=== PATIENT | male | born 1955 | race Two or more races ===

== ENCOUNTER 2021-06-14 11:39 | Emergency (ER) | payer MEDICAID, OTHER ==
[~2021-06-14] VITALS: Ht 167.6 cm; Wt 104.3 kg
[2021-06-14] MEDS ORDERED: cloNIDine HCL 0.1 MG TAB PO ONE (12:00)
[2021-06-14] MEDS ORDERED: SODIUM CHLORIDE 0.9% 1,000 ML IV ONE (12:15)
[2021-06-14 12:24] LABS: Urine Bacteria NONE SEEN /hpf (None Seen); Urine Blood 2+ /uL (Negative); Urine Hyaline Cast MANY /lpf (0 - 2); Urine Mucus FEW (None Seen); Urine Specific Gravity 1.025 (1.001-1.035); Urine WBC 2 /hpf (0 - 3)
[2021-06-14 13:19] LABS: Basophils # (auto) 0 10 ^3/uL (0-0.2); Basophils % (auto) 0.3 % (0.0-2.0); Eosinophils # (auto) 0 10 ^3/uL (0-0.8); Eosinophils % (auto) 0.1 % (0.0-7.0); Hematocrit 52.2 % (41.0-53.0); Hemoglobin 17.4 g/dL (13.5-17.5); Lymphocytes # (auto) 1.4 10 ^3/uL (0.4-5.4); Lymphocytes % (auto) 9.6 % (10.0-50.0); Mean Corpuscular Hemoglobin 30.1 pg (28.0-32.0); Mean Corpuscular Hgb Conc. 33.3 g/dL (32.0-36.0); Mean Corpuscular Volume 90.2 fL (80.0-100.0); Monocytes # (auto) 1.3 10 ^3/uL (0-1.3); Monocytes % (auto) 8.7 % (0.0-12.0); Neutrophils # (auto) 12.3 10 ^3/uL (1.6-8.6); Neutrophils % (auto) 81.3 % (37.0-80.0); Red Blood Cells 5.78 10^6/uL (4.5-5.90); Red Cell Distribution Width 15.1 % (11.8-14.3); White Blood Cell 15.1 10^3/uL (4.4-10.8)
[2021-06-14 13:41] LABS: Albumin 3.2 g/dL (3.4-5.0); BUN/Creatinine Ratio 13.2; Calcium 9.4 mg/dL (8.5-10.1); Potassium 4.5 mmol/L (3.5-5.1)
[2021-06-14 13:44] LABS: Bilirubin, Total 0.9 mg/dL (0.2-1.0); Total Protein 7.6 g/dL (6.4-8.2)
[2021-06-14] MEDS ORDERED: LABETALOL HCL 5 MG/ML ML 20ML VIAL IV ONE (14:49)
[2021-06-14] MEDS ORDERED: LABETALOL INJECTION 250 MG in SODIUM CHL 0.9% 200 ML IV ONE (16:00)
[2021-06-14] MEDS ORDERED: LABETALOL INJECTION 250 MG in SODIUM CHL 0.9% 200 ML IV PRN (21:15)
[2021-06-14 23:35] VITALS: BP 104/56
== END 2021-06-15 01:18 | disposition short-term general hospital (02) ==
LOC: ER 11:39
DX: I71.4 Abdominal aortic aneurysm, without rupture (principal); I16.0 Hypertensive urgency; Z20.822 Contact with and (suspected) exposure to COVID-19
CPT/HCPCS: 36415; 74176; 80053; 81001; 83605; 85025; 86850; 86900; 86901; 87426; 96361; 96365; 99285; J7030; J7050

== ENCOUNTER 2023-10-04 20:04 | Inpatient (IN) | payer OTHER, MEDICAID ==
[~2023-10-04] VITALS: Ht 167.6 cm; Wt 109.1 kg
[2023-10-04] MEDS: DexAMETHasone SOD PHOS 10MG/1ML VIAL INJ IM ONE (20:56)
[2023-10-04 21:15] LABS: Basophils # (auto) 0.1 10 ^3/uL (0-0.2); Basophils % (auto) 0.5 % (0.0-2.0); Eosinophils # (auto) 0.1 10 ^3/uL (0-0.8); Eosinophils % (auto) 0.5 % (0.0-7.0); Hematocrit 51.5 % (41.0-53.0); Hemoglobin 16.5 g/dL (13.5-17.5); Lymphocytes # (auto) 1.4 10 ^3/uL (0.4-5.4); Mean Corpuscular Hemoglobin 28.7 pg (28.0-32.0); Mean Corpuscular Volume 89.8 fL (80.0-100.0); Monocytes # (auto) 1.7 10 ^3/uL (0-1.3); Monocytes % (auto) 7.2 % (0.0-12.0); Neutrophils # (auto) 20.5 10 ^3/uL (1.6-8.6); Neutrophils % (auto) 85.8 % (37.0-80.0); Nucleated Red Blood Cells % 0.1 %; Red Blood Cells 5.74 10^6/uL (4.5-5.90); Red Cell Distribution Width 15.7 % (11.8-14.3); White Blood Cell 23.9 10^3/uL (4.4-10.8)
[2023-10-04] MEDS: ALBUTEROL SULF 2.5 MG/0.5ML(0.5%) NEB SOLN NEB ONE (21:24)
[2023-10-04] MEDS: IPRATROPIUM BROM 0.5 MG/2.5ML INH SOL NEB ONE (21:24)
[2023-10-04 21:30] LABS: Alanine Aminotransferase 19 U/L (7-40); Albumin 4.2 g/dL (3.2-4.8); Alkaline Phosphatase 111 U/L (46-116); Anion Gap 5 (5-15); Aspartate Aminotransferase 19 U/L (13-40); BUN/Creatinine Ratio 6.1 (10.0-20.0); Bilirubin, Total 1.2 mg/dL (0.2-1.0); Blood Urea Nitrogen 11 mg/dL (9-23); Calcium 9.4 mg/dL (8.5-10.1); Carbon Dioxide 26 mmol/L (20-30); Chloride 105 mmol/L (98-107); Glucose 106 mg/dL (74-106); Potassium 4.7 mmol/L (3.5-5.1); Sodium 136 mmol/L (136-145); Total Protein 6.9 g/dL (5.7-8.2)
[2023-10-04 22:24] LABS: Urine Bacteria FEW /hpf (None Seen); Urine Blood 3+ /uL (Negative); Urine Clarity Clear (Clear); Urine Color Yellow (Yellow); Urine Mucus FEW (None Seen); Urine Protein, UAD 3+ (Negative); Urine Specific Gravity 1.023 (1.001-1.035); Urine Urobilinogen Normal (Negative); Urine WBC 2 /hpf (0 - 3)
[2023-10-04] MEDS: AZITHROMYCIN 250 MG TAB PO ONE (23:08)
[2023-10-05] VITALS (12 sets, daily range): BP systolic 117–150; BP diastolic 64–87; PULSE 86–111; RESP 14–22; TEMP 97.2–98.3; O2SAT 91–99
[2023-10-05] MEDS ORDERED: DOCUSATE SOD 100 MG CAP PO PRN (00:30)
[2023-10-05] MEDS ORDERED: ACETAMINOPHEN 325 MG TAB PO PRN ×2 (00:30)
[2023-10-05] MEDS ORDERED: ONDANSETRON HCL 4 MG/2 ML VIAL IV PRN (00:30)
[2023-10-05] MEDS ORDERED: NITROGLYCERIN 0.4 MG SL TAB SL PRN (01:30)
[2023-10-05] MEDS ORDERED: MORPHINE SULFATE INJ 2 MG/ml SYRG IV PRN (01:30)
[2023-10-05] MEDS: SODIUM CHLORIDE 0.9% 1,000 ML IV SCH (01:31)
[2023-10-05] MEDS: methylPREDNISolone SOD SUCC 40 MG/ML VL IV SCH (06:02)
[2023-10-05 06:44] LABS: Alanine Aminotransferase 20 U/L (7-40); Albumin 4.2 g/dL (3.2-4.8); Alkaline Phosphatase 104 U/L (46-116); Anion Gap 8 (5-15); Aspartate Aminotransferase 15 U/L (13-40); BUN/Creatinine Ratio 9.8 (10.0-20.0); Blood Urea Nitrogen 19 mg/dL (9-23); Carbon Dioxide 25 mmol/L (20-30); Chloride 103 mmol/L (98-107); Potassium 4.8 mmol/L (3.5-5.1); Sodium 136 mmol/L (136-145); Total Protein 6.8 g/dL (5.7-8.2)
[2023-10-05 06:45] LABS: Calcium 9.1 mg/dL (8.7-10.4)
[2023-10-05 06:50] LABS: Basophils # (auto) 0 10 ^3/uL (0-0.2); Basophils % (auto) 0.1 % (0.0-2.0); Eosinophils # (auto) 0 10 ^3/uL (0-0.8); Hematocrit 51.4 % (41.0-53.0); Hemoglobin 16.7 g/dL (13.5-17.5); Lymphocytes # (auto) 0.7 10 ^3/uL (0.4-5.4); Lymphocytes % (auto) 3.5 % (10.0-50.0); Mean Corpuscular Hemoglobin 29.1 pg (28.0-32.0); Mean Corpuscular Hgb Conc. 32.4 g/dL (32.0-36.0); Mean Corpuscular Volume 89.8 fL (80.0-100.0); Monocytes # (auto) 0.2 10 ^3/uL (0-1.3); Monocytes % (auto) 0.9 % (0.0-12.0); Neutrophils # (auto) 18.5 10 ^3/uL (1.6-8.6); Neutrophils % (auto) 95.5 % (37.0-80.0); Red Blood Cells 5.73 10^6/uL (4.5-5.90); Red Cell Distribution Width 15.4 % (11.8-14.3); White Blood Cell 19.4 10^3/uL (4.4-10.8)
[2023-10-05 06:57] LABS: Glucose 297 mg/dL (74-106)
[2023-10-05] MEDS: ASPirin 81 mg TAB PO SCH (09:39)
[2023-10-05] MEDS ORDERED: LISI40TA16 PO (09:43)
[2023-10-05 13:52] LABS: Triglycerides 117 mg/dL (< 150)
[2023-10-05 13:53] LABS: LDL Cholesterol 101 mg/dL (< 100)
[2023-10-05 13:54] LABS: HDL Cholesterol 38 mg/dL (40-59)
[2023-10-05 13:55] LABS: Cholesterol 156 mg/dL (< 200)
[2023-10-05] MEDS: cefTRIAXone 1GM/50ML D5W 50 ML IV ONE (14:15)
[2023-10-05] MEDS ORDERED: SIMV40TA18 PO ×2 (16:00)
[2023-10-05] MEDS ORDERED: PROP80CA40 PO (16:00)
[2023-10-05] MEDS: ATORVASTATIN 20 MG TAB PO SCH (22:28)
[2023-10-05] MEDS: AZITHROMYCIN 500MG/ 250ML 250 ML IV SCH (22:29)
[2023-10-06] VITALS (10 sets, daily range): BP systolic 107–148; BP diastolic 48–84; PULSE 55–139; RESP 14–23; TEMP 97.3–98.3; O2SAT 94–98
[2023-10-06 04:17] LABS: Rapid Influenza A Negative (Negative)
[2023-10-06 04:18] LABS: COVID19 ANTIGEN SOFIA FIA NEGATIVE (NEGATIVE); Rapid Influenza B Negative (Negative)
[2023-10-06 06:28] LABS: Alanine Aminotransferase 17 U/L (7-40); Alkaline Phosphatase 89 U/L (46-116); Anion Gap 4 (5-15); Aspartate Aminotransferase 12 U/L (13-40); BUN/Creatinine Ratio 16.6 (10.0-20.0); Bilirubin, Total 0.3 mg/dL (0.2-1.0); Calcium 9.7 mg/dL (8.7-10.4); Carbon Dioxide 27 mmol/L (20-30); Chloride 107 mmol/L (98-107); Potassium 4.9 mmol/L (3.5-5.1); Sodium 138 mmol/L (136-145); Total Protein 6.6 g/dL (5.7-8.2)
[2023-10-06 06:30] LABS: Basophils # (auto) 0 10 ^3/uL (0-0.2); Basophils % (auto) 0.1 % (0.0-2.0); Eosinophils # (auto) 0 10 ^3/uL (0-0.8); Hematocrit 50.5 % (41.0-53.0); Hemoglobin 16.1 g/dL (13.5-17.5); Lymphocytes # (auto) 0.9 10 ^3/uL (0.4-5.4); Mean Corpuscular Hemoglobin 28.7 pg (28.0-32.0); Mean Corpuscular Hgb Conc. 31.9 g/dL (32.0-36.0); Mean Corpuscular Volume 90.1 fL (80.0-100.0); Monocytes # (auto) 0.7 10 ^3/uL (0-1.3); Monocytes % (auto) 3.2 % (0.0-12.0); Neutrophils # (auto) 20.8 10 ^3/uL (1.6-8.6); Neutrophils % (auto) 92.7 % (37.0-80.0); Red Cell Distribution Width 15.8 % (11.8-14.3); White Blood Cell 22.4 10^3/uL (4.4-10.8)
[2023-10-06 06:38] LABS: Blood Urea Nitrogen 32 mg/dL (9-23); Glucose 194 mg/dL (74-106)
[2023-10-06] MEDS: cefTRIAXone 1GM/50ML D5W 50 ML IV SCH (09:04)
[2023-10-06] MEDS: LISINOPRIL 20 MG TAB PO SCH (09:05)
[2023-10-06] MEDS: IPRATROPIUM BROM 0.5 MG/2.5ML INH SOL NEB PRN (18:42)
[2023-10-06] MEDS: ALBUTEROL SULF 2.5 MG/0.5ML(0.5%) NEB SOLN NEB PRN (18:42)
[2023-10-07] VITALS (10 sets, daily range): BP systolic 103–118; BP diastolic 46–64; PULSE 53–89; RESP 16–20; TEMP 97.8–97.9; O2SAT 93–99
[2023-10-07 05:20] LABS: Basophils # (auto) 0 10 ^3/uL (0-0.2); Basophils % (auto) 0.1 % (0.0-2.0); Eosinophils # (auto) 0 10 ^3/uL (0-0.8); Hematocrit 49.9 % (41.0-53.0); Hemoglobin 15.8 g/dL (13.5-17.5); Lymphocytes # (auto) 0.8 10 ^3/uL (0.4-5.4); Lymphocytes % (auto) 3.5 % (10.0-50.0); Mean Corpuscular Hemoglobin 28.6 pg (28.0-32.0); Mean Corpuscular Hgb Conc. 31.8 g/dL (32.0-36.0); Mean Corpuscular Volume 90.2 fL (80.0-100.0); Monocytes # (auto) 0.5 10 ^3/uL (0-1.3); Monocytes % (auto) 2.2 % (0.0-12.0); Neutrophils # (auto) 20.6 10 ^3/uL (1.6-8.6); Neutrophils % (auto) 94.2 % (37.0-80.0); Nucleated Red Blood Cells % 0.1 %; Red Blood Cells 5.53 10^6/uL (4.5-5.90); Red Cell Distribution Width 16.1 % (11.8-14.3); White Blood Cell 21.9 10^3/uL (4.4-10.8)
[2023-10-08] VITALS (10 sets, daily range): BP systolic 118–160; BP diastolic 64–99; PULSE 55–96; RESP 18–26; TEMP 97.9–98.3; O2SAT 92–98
[2023-10-08 05:57] LABS: Basophils # (auto) 0 10 ^3/uL (0-0.2); Eosinophils # (auto) 0 10 ^3/uL (0-0.8); Hematocrit 49.3 % (41.0-53.0); Hemoglobin 15.7 g/dL (13.5-17.5); Lymphocytes # (auto) 0.8 10 ^3/uL (0.4-5.4); Lymphocytes % (auto) 5.4 % (10.0-50.0); Mean Corpuscular Hemoglobin 28.7 pg (28.0-32.0); Mean Corpuscular Hgb Conc. 31.8 g/dL (32.0-36.0); Mean Corpuscular Volume 90.2 fL (80.0-100.0); Monocytes # (auto) 0.4 10 ^3/uL (0-1.3); Monocytes % (auto) 2.6 % (0.0-12.0); Neutrophils # (auto) 13.5 10 ^3/uL (1.6-8.6); Red Blood Cells 5.47 10^6/uL (4.5-5.90); Red Cell Distribution Width 15.5 % (11.8-14.3); White Blood Cell 14.7 10^3/uL (4.4-10.8)
[2023-10-08] MEDS: hydrALAZINE HCL 20 MG/ML VL IV PRN (10:40)
[2023-10-09] VITALS (8 sets, daily range): BP systolic 148–160; BP diastolic 90–115; PULSE 66–111; RESP 18–20; TEMP 97.5–98.3; O2SAT 91–97
[2023-10-09 14:30] LABS: Base Excess 3.6 mmol/L (-2.0-2.0)
[2023-10-09] MEDS: AZITHROMYCIN 250 MG TAB PO SCH (20:58)
[2023-10-10] VITALS (8 sets, daily range): BP systolic 134–162; BP diastolic 88–93; PULSE 71–117; RESP 16–19; TEMP 97.3–98; O2SAT 93–98
[2023-10-10] MEDS ORDERED: AZIT500T66 PO (12:21)
[2023-10-10] MEDS ORDERED: ALBUAER3 IN (12:21)
[2023-10-10] MEDS ORDERED: PRED20TA2 PO (12:21)
[2023-10-10] MEDS ORDERED: METO-158 PO (12:24)
[2023-10-10] MEDS: METOPROLOL TARTRATE 50 MG TAB PO ONE (13:23)
== END 2023-10-10 18:13 | disposition home or self-care (01) | DRG 871 ==
LOC: ER 20:04 → TELE 10-05 01:18 → TELE-WESTW 10-05 01:32
PROVIDERS: ADMIT Nurse Practitioner Family; ATTEND Family Medicine
PROC: 05HB33Z Insertion of Infusion Device into Right Basilic Vein, Percutaneous Approach (ICD-10-PCS; principal; 2023-10-08)
PROC: B54MZZA Ultrasonography of Right Upper Extremity Veins, Guidance (ICD-10-PCS; 2023-10-08)
DX: A41.9 Sepsis, unspecified organism (principal); J15.69 Pneumonia due to other Gram-negative bacteria; J96.01 Acute respiratory failure with hypoxia; J15.9 Unspecified bacterial pneumonia; N17.9 Acute kidney failure, unspecified; Z68.41 Body mass index [BMI] 40.0-44.9, adult; J98.11 Atelectasis; E66.01 Morbid (severe) obesity due to excess calories; Z20.822 Contact with and (suspected) exposure to COVID-19; I10 Essential (primary) hypertension; Z87.891 Personal history of nicotine dependence; Z87.442 Personal history of urinary calculi; Z79.899 Other long term (current) drug therapy; Z86.79 Personal history of other diseases of the circulatory system; Z83.3 Family history of diabetes mellitus
CPT/HCPCS: 36415; 36600; 71045; 71250; 74176; 80053; 80061; 81001; 82805; 82962; 83036; 83880; 84443; 84484; 85025; 85379; 87040; 87070; 87205; 87426; 87804; 93005; 93306; 94640; 97110; 97116; 97163; 97530; G0378; J1100

== ENCOUNTER 2024-03-29 12:01 | Inpatient (IN) | payer MEDICARE, MEDICAID ==
[~2024-03-29] VITALS: Ht 162.6 cm; Wt 112.3 kg
[~2024-03-29 12:01] MED LIST: ALBUAER3 IN; AMLO1TAB22 PO; ASPI-665 PO; AZIT500T66 PO; CLON0.1T PO; LISI40TA16 PO; METO-158 PO; PRED20TA2 PO; PROP80CA40 PO; SIMV40TA18 PO
[2024-03-29] MEDS ORDERED: AZITHROMYCIN 250 MG TAB PO ONE (12:30)
[2024-03-29] MEDS ORDERED: methylPREDNISolone SOD SUCC 125 MG/2 ML VL IV ONE (12:30)
[2024-03-29] MEDS ORDERED: ALBUTEROL SULF 2.5 MG/0.5ML(0.5%) NEB SOLN NEB ONE (12:30)
[2024-03-29] MEDS ORDERED: IPRATROPIUM BROM 0.5 MG/2.5ML INH SOL NEB ONE (12:30)
[2024-03-29 13:18] LABS: Chloride 105 mmol/L (98-107); Sodium 136 mmol/L (136-145)
[2024-03-29 13:19] LABS: Anion Gap 3 (5-15); Calcium 9.4 mg/dL (8.7-10.4); Carbon Dioxide 28 mmol/L (20-30)
[2024-03-29 13:21] LABS: Basophils # (auto) 0.1 10 ^3/uL (0-0.2); Basophils % (auto) 0.3 % (0.0-2.0); Eosinophils # (auto) 0 10 ^3/uL (0-0.8); Eosinophils % (auto) 0.1 % (0.0-7.0); Hematocrit 50.3 % (41.0-53.0); Hemoglobin 16.6 g/dL (13.5-17.5); Lymphocytes # (auto) 1.4 10 ^3/uL (0.4-5.4); Lymphocytes % (auto) 6.1 % (10.0-50.0); Mean Corpuscular Hemoglobin 29.3 pg (28.0-32.0); Monocytes # (auto) 1.5 10 ^3/uL (0-1.3); Monocytes % (auto) 6.5 % (0.0-12.0); Neutrophils # (auto) 19.3 10 ^3/uL (1.6-8.6); Platelet Count (auto) 217 10^3/uL (140-450); Red Blood Cells 5.65 10^6/uL (4.5-5.90); Red Cell Distribution Width 16.1 % (11.8-14.3); White Blood Cell 22.2 10^3/uL (4.4-10.8)
[2024-03-29 13:24] LABS: BUN/Creatinine Ratio 12.3 (10.0-20.0); Blood Urea Nitrogen 25 mg/dL (9-23); Glucose 143 mg/dL (74-106)
[2024-03-29] MEDS: ALBUTEROL SULF 2.5 MG/0.5ML(0.5%) NEB SOLN NEB ONE (13:52)
[2024-03-29] MEDS: SODIUM CHLORIDE 0.9% 1,000 ML IV ONE (14:30)
[2024-03-29] MEDS: AZITHROMYCIN 250 MG TAB PO ONE (14:30)
[2024-03-29 16:19] LABS: COVID19 ANTIGEN SOFIA FIA NEGATIVE (NEGATIVE)
[2024-03-29 19:30] VITALS: PULSE 90; RESP 18; O2SAT 95
[2024-03-29] MEDS ORDERED: MORPHINE SULFATE INJ 2 MG/ml SYRG IV PRN (21:45)
[2024-03-29] MEDS ORDERED: ONDANSETRON HCL 4 MG/2 ML VIAL IV PRN (21:45)
[2024-03-29] MEDS ORDERED: NITROGLYCERIN 0.4 MG SL TAB SL PRN (21:45)
[2024-03-29] MEDS ORDERED: ACETAMINOPHEN 325 MG TAB PO PRN (21:45)
[2024-03-29 21:50] VITALS: BP 123/69; PULSE 94; RESP 16; TEMP 99.5; O2SAT 95
[2024-03-29] MEDS: cloNIDine HCL 0.1 MG TAB PO SCH (22:00)
[2024-03-29] MEDS: ATORVASTATIN 20 MG TAB PO SCH (22:05)
[2024-03-29] MEDS: PROPRANOLOL HCL 20 MG TAB PO SCH (22:25)
[2024-03-30] VITALS (17 sets, daily range): BP systolic 101–140; BP diastolic 56–81; PULSE 60–109; RESP 16–22; TEMP 97.6–98.4; O2SAT 92–100
[2024-03-30] MEDS: IOHEXOL 350 MG/ML 100ML IJ ONE (00:16)
[2024-03-30] MEDS: ALBUTEROL SULF 2.5 MG/0.5ML(0.5%) NEB SOLN NEB PRN (01:44)
[2024-03-30] MEDS: IPRATROPIUM BROM 0.5 MG/2.5ML INH SOL NEB PRN (01:45)
[2024-03-30 07:34] LABS: Basophils # (auto) 0 10 ^3/uL (0-0.2); Basophils % (auto) 0.2 % (0.0-2.0); Eosinophils # (auto) 0.1 10 ^3/uL (0-0.8); Eosinophils % (auto) 0.5 % (0.0-7.0); Hematocrit 44.7 % (41.0-53.0); Hemoglobin 14.6 g/dL (13.5-17.5); Lymphocytes # (auto) 1.9 10 ^3/uL (0.4-5.4); Lymphocytes % (auto) 9.9 % (10.0-50.0); Mean Corpuscular Hemoglobin 29.9 pg (28.0-32.0); Mean Corpuscular Hgb Conc. 32.7 g/dL (32.0-36.0); Mean Corpuscular Volume 91.3 fL (80.0-100.0); Monocytes # (auto) 1.5 10 ^3/uL (0-1.3); Monocytes % (auto) 8.1 % (0.0-12.0); Neutrophils # (auto) 15.6 10 ^3/uL (1.6-8.6); Neutrophils % (auto) 81.3 % (37.0-80.0); Platelet Count (auto) 180 10^3/uL (140-450); White Blood Cell 19.2 10^3/uL (4.4-10.8)
[2024-03-30 07:42] LABS: Chloride 106 mmol/L (98-107); Potassium 5.4 mmol/L (3.5-5.1); Sodium 138 mmol/L (136-145)
[2024-03-30 07:43] LABS: Anion Gap 3 (5-15); Carbon Dioxide 29 mmol/L (20-30)
[2024-03-30 07:44] LABS: Calcium 8.8 mg/dL (8.7-10.4)
[2024-03-30 07:48] LABS: BUN/Creatinine Ratio 13.3 (10.0-20.0); Blood Urea Nitrogen 27 mg/dL (9-23); Glucose 116 mg/dL (74-106)
[2024-03-30] MEDS: DOXYCYCLINE 100 MG TAB/CAP PO SCH (10:21)
[2024-03-30] MEDS: methylPREDNISolone SOD SUCC 40 MG/ML VL IV SCH (10:22)
[2024-03-30] MEDS: SODIUM ZIRCONIUM CYCL 10 GM PAK PO ONE (10:22)
[2024-03-30] MEDS: CALCIUM GLUC 1,000mg/50ml-NS 50 ML IV ONE (10:22)
[2024-03-30] MEDS: PANTOPRAZOLE 40 MG TAB PO ONE (10:34)
[2024-03-30] MEDS: FUROSEMIDE 20 MG/2 ML VIAL IV ONE (12:32)
[2024-03-30] MEDS: SODIUM ZIRCONIUM CYCL 10 GM PAK PO SCH (13:30)
[2024-03-30] MEDS ORDERED: AZITHROMYCIN 500MG/ 250ML 250 ML IV SCH (14:00)
[2024-03-30] MEDS ORDERED: ENOXAPARIN SOD 40 MG/0.4 ML SYRINGE SC ONE (19:00)
[2024-03-30] MEDS: ENOXAPARIN SOD 30 MG/0.3 ML SYRINGE SC SCH (21:12)
[2024-03-31] VITALS (10 sets, daily range): BP systolic 101–153; BP diastolic 49–72; PULSE 56–77; RESP 16–20; TEMP 97.4–98.3; O2SAT 96–99
[2024-03-31] MEDS: PANTOPRAZOLE 40 MG TAB PO SCH (06:33)
[2024-03-31 06:40] LABS: Alanine Aminotransferase 18 U/L (7-40); Albumin 4.3 g/dL (3.2-4.8); Alkaline Phosphatase 110 U/L (46-116); Anion Gap 7 (5-15); Aspartate Aminotransferase 12 U/L (13-40); BUN/Creatinine Ratio 15.8 (10.0-20.0); Bilirubin, Total 0.3 mg/dL (0.2-1.0); Blood Urea Nitrogen 35 mg/dL (9-23); Calcium 9.7 mg/dL (8.7-10.4); Carbon Dioxide 25 mmol/L (20-30); Chloride 103 mmol/L (98-107); Cholesterol 173 mg/dL (< 200); Glucose 125 mg/dL (74-106); HDL Cholesterol 35 mg/dL (40-59); LDL Cholesterol 113 mg/dL (< 100); Sodium 135 mmol/L (136-145); Triglycerides 161 mg/dL (< 150)
[2024-03-31 07:11] LABS: Basophils # (auto) 0.1 10 ^3/uL (0-0.2); Basophils % (auto) 0.5 % (0.0-2.0); Eosinophils # (auto) 0 10 ^3/uL (0-0.8); Hematocrit 52.3 % (41.0-53.0); Hemoglobin 16.9 g/dL (13.5-17.5); Lymphocytes % (auto) 6.5 % (10.0-50.0); Mean Corpuscular Hemoglobin 29.3 pg (28.0-32.0); Mean Corpuscular Hgb Conc. 32.3 g/dL (32.0-36.0); Mean Corpuscular Volume 90.6 fL (80.0-100.0); Monocytes # (auto) 0.7 10 ^3/uL (0-1.3); Monocytes % (auto) 4.1 % (0.0-12.0); Neutrophils # (auto) 14.3 10 ^3/uL (1.6-8.6); Neutrophils % (auto) 88.9 % (37.0-80.0); Nucleated Red Blood Cells % 0.2 %; Platelet Count (auto) 194 10^3/uL (140-450); Red Blood Cells 5.78 10^6/uL (4.5-5.90); Red Cell Distribution Width 16.1 % (11.8-14.3); White Blood Cell 16.1 10^3/uL (4.4-10.8)
[2024-03-31 08:49] LABS: Platelet Estimate Adequate
[2024-03-31] MEDS: PROPRANOLOL HCL 20 MG TAB PO SCH (09:45)
[2024-03-31] MEDS: FUROSEMIDE 20 MG/2 ML VIAL IV SCH (09:47)
[2024-03-31] MEDS: cefTRIAXone 1GM/50ML D5W 50 ML IV SCH (09:47)
[2024-03-31] MEDS ORDERED: ENOXAPARIN SOD 40 MG/0.4 ML SYRINGE SC SCH (10:00)
[2024-03-31 13:30] LABS: Urine Bacteria None Seen /hpf (None Seen)
[2024-03-31 13:39] LABS: Urine Blood 1+ /uL (Negative); Urine Clarity Clear (Clear); Urine Color Light-Yellow (Yellow); Urine Protein, UAD 1+ (Negative); Urine Specific Gravity 1.013 (1.001-1.035); Urine Urobilinogen Normal (Negative); Urine WBC 2 /hpf (0 - 3); Urine pH 5.5 (5.0-9.0)
[2024-03-31 13:52] LABS: Creatinine, Urine 69.44 mg/dL (30.0-125.0)
[2024-03-31] MEDS: FUROSEMIDE 20 MG/2 ML VIAL IV ONE (16:46)
[2024-03-31] MEDS: FUROSEMIDE 40 MG/4 ML VIAL IV SCH (17:37)
[2024-03-31] MEDS: methylPREDNISolone SOD SUCC 40 MG/ML VL IV SCH (21:30)
[2024-03-31] MEDS: ATORVASTATIN 20 MG TAB PO SCH (21:31)
[2024-03-31] MEDS: IPRATROPIUM BROM 0.5 MG/2.5ML INH SOL NEB PRN (22:33)
[2024-03-31] MEDS: ALBUTEROL SULF 2.5 MG/0.5ML(0.5%) NEB SOLN NEB PRN (22:33)
[2024-04-01] VITALS (10 sets, daily range): BP systolic 95–134; BP diastolic 59–77; PULSE 58–85; RESP 16–20; TEMP 97.2–98.3; O2SAT 92–98
[2024-04-01 06:45] LABS: Chloride 104 mmol/L (98-107); Potassium 4.5 mmol/L (3.5-5.1); Sodium 136 mmol/L (136-145)
[2024-04-01 06:46] LABS: Anion Gap 7 (5-15); Calcium 9.5 mg/dL (8.7-10.4); Carbon Dioxide 25 mmol/L (20-30)
[2024-04-01 06:51] LABS: BUN/Creatinine Ratio 15.6 (10.0-20.0); Blood Urea Nitrogen 36 mg/dL (9-23); Glucose 154 mg/dL (74-106)
[2024-04-01 06:52] LABS: Magnesium 2.3 mg/dL (1.6-2.6)
[2024-04-01 07:18] LABS: Hematocrit 51.1 % (41.0-53.0); Hemoglobin 16.3 g/dL (13.5-17.5); Mean Corpuscular Hemoglobin 29.1 pg (28.0-32.0); Mean Corpuscular Hgb Conc. 31.8 g/dL (32.0-36.0); Mean Corpuscular Volume 91.3 fL (80.0-100.0); Platelet Count (auto) 265 10^3/uL (140-450); Red Cell Distribution Width 16.1 % (11.8-14.3); White Blood Cell 12.7 10^3/uL (4.4-10.8)
[2024-04-01 07:22] LABS: Band Neutrophils % (manual) 0; Basophils % (manual) 0 (0.0-2.0); Blast Cells 0; Eosinophils % (manual) 0 (0-7); Metamyelocytes % 0; Myelocytes % 0; Promyelocytes % 0; Reactive Lymphocytes 0
[2024-04-01 08:42] LABS: Lymphocytes % (manual) 2 (10.0-50.0); Monocytes % (manual) 1 (0-12); Platelet Estimate Adequate
[2024-04-01] MEDS ORDERED: FUROSEMIDE 40 MG/4 ML VIAL IV SCH (10:00)
[2024-04-01 11:44] LABS: Base Excess -0.1 mmol/L (-2.0-3.0)
[2024-04-01 22:42] LABS: Rapid Influenza A Negative (Negative); Rapid Influenza B Negative (Negative)
[2024-04-02 01:00] VITALS: BP 120/69; PULSE 68; RESP 17; TEMP 98.3; O2SAT 95
[2024-04-02 05:00] VITALS: BP 92/40; PULSE 60; RESP 17; TEMP 98.2; O2SAT 91
[2024-04-02 06:32] LABS: Basophils # (auto) 0 10 ^3/uL (0-0.2); Basophils % (auto) 0.2 % (0.0-2.0); Eosinophils # (auto) 0 10 ^3/uL (0-0.8); Eosinophils % (auto) 0.2 % (0.0-7.0); Hematocrit 48.6 % (41.0-53.0); Lymphocytes # (auto) 0.4 10 ^3/uL (0.4-5.4); Mean Corpuscular Hemoglobin 29.5 pg (28.0-32.0); Mean Corpuscular Hgb Conc. 32.9 g/dL (32.0-36.0); Mean Corpuscular Volume 89.8 fL (80.0-100.0); Monocytes # (auto) 0.4 10 ^3/uL (0-1.3); Monocytes % (auto) 2.2 % (0.0-12.0); Neutrophils # (auto) 16.9 10 ^3/uL (1.6-8.6); Neutrophils % (auto) 95.4 % (37.0-80.0); Platelet Count (auto) 259 10^3/uL (140-450); Red Blood Cells 5.42 10^6/uL (4.5-5.90); Red Cell Distribution Width 15.8 % (11.8-14.3); White Blood Cell 17.7 10^3/uL (4.4-10.8)
[2024-04-02 06:47] LABS: Chloride 102 mmol/L (98-107); Potassium 4.3 mmol/L (3.5-5.1); Sodium 139 mmol/L (136-145)
[2024-04-02 06:48] LABS: Anion Gap 4 (5-15); Calcium 9.8 mg/dL (8.7-10.4); Carbon Dioxide 33 mmol/L (20-30)
[2024-04-02 06:53] LABS: Glucose 171 mg/dL (74-106)
[2024-04-02 07:01] LABS: Blood Urea Nitrogen 47 mg/dL (9-23)
[2024-04-02 08:25] VITALS: BP 136/68; PULSE 73; RESP 18; TEMP 98.3; O2SAT 93
[2024-04-02] MEDS ORDERED: PRED20TA2 PO (09:10)
[2024-04-02] MEDS ORDERED: UMEC1AER IN (09:10)
[2024-04-02] MEDS ORDERED: DOXY-286 PO (09:10)
[2024-04-02] MEDS ORDERED: ALBUAER3 IN (09:10)
[2024-04-02 09:50] VITALS: O2SAT 95
[2024-04-02 12:20] VITALS: BP 154/79; PULSE 69; RESP 18; TEMP 98; O2SAT 95
[2024-04-02] MEDS ORDERED: FURO40TA4 PO (17:42)
== END 2024-04-02 14:00 | disposition home or self-care (01) | DRG 177 ==
LOC: ER 12:01 → WEST WING 21:51 → TELE 21:51 → TELE-WESTW 23:45 → WEST WING 04-01 03:08
PROVIDERS: ADMIT Internal Medicine; ATTEND Internal Medicine
DX: J15.69 Pneumonia due to other Gram-negative bacteria (principal); J96.01 Acute respiratory failure with hypoxia; N17.0 Acute kidney failure with tubular necrosis; J44.1 Chronic obstructive pulmonary disease with (acute) exacerbation; Z68.41 Body mass index [BMI] 40.0-44.9, adult; J44.0 Chronic obstructive pulmonary disease with (acute) lower respiratory infection; J15.9 Unspecified bacterial pneumonia; E66.01 Morbid (severe) obesity due to excess calories; N18.9 Chronic kidney disease, unspecified; I12.9 Hypertensive chronic kidney disease with stage 1 through stage 4 chronic kidney disease, or unspecified chronic kidney disease; E78.5 Hyperlipidemia, unspecified; Z20.822 Contact with and (suspected) exposure to COVID-19; E87.5 Hyperkalemia; Z87.442 Personal history of urinary calculi; Z87.891 Personal history of nicotine dependence
CPT/HCPCS: 36415; 36600; 71045; 71275; 76775; 80048; 80053; 80061; 81001; 82570; 82805; 83605; 83735; 83880; 84132; 84300; 84484; 85007; 85025; 85027; 85379; 87040; 87081; 87426; 87804; 93005; 93306; 94640; 96360; G0378

== ENCOUNTER 2024-10-17 18:31 | Inpatient (IN) | payer MEDICAID, MEDICARE ==
[~2024-10-17] VITALS: Ht 167.6 cm; Wt 113.0 kg
[~2024-10-17 18:31] MED LIST changes: -AZIT500T66 PO; +DOXY-286 PO; +FURO40TA4 PO; -METO-158 PO; +UMEC1AER IN
--- NOTE | 2024-10-17 19:08 | ED.PDOC ---
SOB-HPI HPI Comments 69 year old male came to ER via EMS due to shortness of breath. Patient has history of hypertension, dyslipidemia and COPD on home oxygen at 2 lpm. Has been having productive cough and shortness of breath since this morning progressively worsening, Saturating at 95% at 2lpm. Patient was given albuterol treatment by anastasiya while en route to the ER. Chief Complaint: Shortness of Breath Time Seen by MD: 19:07 Primary Care Provider: SOILA Schneider notes: Nurses Notes Information Source: Patient Mode of Arrival: EMS Severity: Moderate Timing: Hours Duration: Since onset Context: At Rest History of: COPD Prehospital treatment: Breathing Tx Review of Systems REVIEW OF SYSTEMS: No fever, no chills, or fatigue HEENT: No sore throat, no earache, no congestion, no neck pain. Cardiac: No chest pain. No palpitations. Lungs: (+) shortness of breath, (+) cough. GI: No nausea, no vomiting, no diarrhea, no constipation, no abdominal pain : No dysuria, frequency, or urgency. No hematuria. Musculoskeletal: No joint pain , no joint swelling, no extremity edema. Skin: No rash, no itching. Neuro: No headache, no dizziness, no weakness Vital Signs Vital Signs Date Time Temp Pulse Resp B/P (MAP) Pulse Ox O2 Delivery O2 Flow Rate FiO2 10/17/24 21:38 96 113/96 10/17/24 21:15 95 Nasal Cannula 3.0 10/17/24 21:15 32 10/17/24 21:10 98.3 18 98.3 Physical Exam General: Awake, alert and oriented. No acute distress. Skin: Skin in warm, dry and intact. Appropriate color for ethnicity. Nailbeds pink with no cyanosis. HEENT: The head is normocephalic and atraumatic. Conjunctivae are clear without exudates or hemorrhage. Sclera is non-icteric. EOM are intact. No signs of nystagmus. Eyelids are normal in appearance without swelling or lesions. Oral mucosa is pink and moist Neck: The neck is supple with normal range of motion. No JVD. Cardiac: Heart rate and rhythm are normal. No murmurs, gallops, or rubs are auscultated. Respiratory: No signs of respiratory distress. Rhonchi bilaterally. Abdominal: Abdomen is soft, non-tender without distention. Bowel sounds are present and normoactive in all four quadrants. Extremities: 2+ pitting lower extremity edema Neurological: The patient is awake, alert and oriented to person, place, and time with normal speech. Speech is clear. There is no facial asymmetry. Psychiatric: Appropriate mood and affect. Good judgement and insight. No visual or auditory hallucinations. Past Medical History PAST MEDICAL HISTORY: COPD, CVA, High Lipids, HTN, Kidney Stones Surgical History: CABG Family History Family History: Reviewed,noncontributory to illness Social History Smoker: Quit Greater Than 1 Year, Cigarettes Alcohol: Denies ETOH Use Drugs: Denies Drug Use Lives In: Home EKG EKG : Pulse Rate (adult): 100 Cardiac Rhythm: ST Hypertrophy: LAE Was a procedure done? Was a procedure done?: No Differential Dx Differential Diagnosis: Anxiety, Asthma, Bronchitis, CHF, COPD, Myocardial infarction, Panic Attack, Pneumonia, Respiratory Distress X-Ray, Labs, Meds, VS Vital Signs Date Time Temp Pulse Resp B/P (MAP) Pulse Ox O2 Delivery O2 Flow Rate FiO2 10/17/24 21:38 96 113/96 10/17/24 21:15 95 Nasal Cannula 3.0 10/17/24 21:15 95 Nasal Cannula* 3 32 10/17/24 21:10 98.3 93 18 98/51 95 3.0 32 98.3 10/17/24 20:59 25 92 Nasal Cannula* 3 32 10/17/24 20:30 Nasal Cannula* 3 32 10/17/24 19:44 98/51 10/17/24 19:35 20 95 Nasal Cannula* 3 32 10/17/24 19:30 98.3 93 20 98/51 (67) 95 98.3 10/17/24 19:30 83 20 95 Nasal Cannula* 3 32 10/17/24 19:08 100 10/17/24 18:37 98.3 94 28 139/90 (106) 94 98.3 10/17/24 18:36 28 94 Nasal Cannula* 2 28 10/17/24 18:31 100 Lab Test 10/17/24 21:40 10/17/24 21:14 10/17/24 19:33 10/17/24 19:22 Range/Units Lactic Acid Level 5.0 *H 4.0 *H 0.4-2.0 mmol/L Troponin I High Sensitivity 4 5 </=54 ng/L POC Glucose 285 H 70-106 mg/dl White Blood Count 39.0 *H 4.4-10.8 10^3/uL Red Blood Count 5.78 4.5-5.90 10^6/uL Hemoglobin 17.2 13.5-17.5 g/dL Hematocrit 51.4 41.0-53.0 % Mean Corpuscular Volume 89.1 80.0-100.0 fL Mean Corpuscular Hemoglobin 29.7 28.0-32.0 pg Mean Corpuscular Hemoglobin Concent 33.4 32.0-36.0 g/dL Red Cell Distribution Width 15.0 H 11.8-14.3 % Platelet Count 160 140-450 10^3/uL Mean Platelet Volume 8.6 6.9-10.8 fL Neutrophils (%) (Auto) 37.0-80.0 % Lymphocytes (%) (Auto) 10.0-50.0 % Monocytes (%) (Auto) 0.0-12.0 % Basophils (%) (Auto) 0.0-2.0 % Neutrophils # (Auto) 1.6-8.6 10 ^3/uL Lymphocytes # (Auto) 0.4-5.4 10 ^3/uL Monocytes # (Auto) 0-1.3 10 ^3/uL Differential Total Cells Counted 100.0 100 Neutrophils % (Manual) 87 H 37.0-80.0 Band Neutrophils % (Manual) 6 Lymphocytes % (Manual) 3 L 10.0-50.0 Monocytes % (Manual) 4 0-12 Eosinophils % (Manual) 0 0-7 Basophils % (Manual) 0 0.0-2.0 Metamyelocytes % (manual) 0 Myelocytes % (Manual) 0 Promyelocytes % (Manual) 0 Blast Cells % (Manual) 0 Reactive Lymphocytes 0 Platelet Estimate Adequate D-Dimer, Quantitative 4.09 H 0.0-0.49 mg/L FEU Sodium Level 136 136-145 mmol/L Potassium Level 7.0 *H 3.5-5.1 mmol/L Chloride Level 102 98-107 mmol/L Carbon Dioxide Level 26 20-31 mmol/L Anion Gap 8 5-15 Blood Urea Nitrogen 38 H 9-23 mg/dL Creatinine 2.59 H 0.700-1.30 mg/dL Glomerular Filtration Rate Calc 26 >90 mL/min BUN/Creatinine Ratio 14.7 10.0-20.0 Serum Glucose 308 H 74-106 mg/dL Calcium Level 9.9 8.7-10.4 mg/dL Total Bilirubin 1.1 H 0.2-1.0 mg/dL Aspartate Amino Transferase (AST) 23 13-40 U/L Alanine Aminotransferase (ALT) 34 7-40 U/L Alkaline Phosphatase 99 46-116 U/L B-Type Natriuretic Peptide 304.68 0-100 pg/mL Total Protein 6.5 5.7-8.2 g/dL Albumin 4.3 3.2-4.8 g/dL Blood Gas Specimen Type Arterial Blood Gas Sample Site Right brachial Blood Gas Patient Temperature 37.0 Arterial Blood Date Drawn [id number] Arterial Blood pH 7.385 7.350-7.450 Arterial Blood Partial Pressure CO2 36.9 35.0-48.0 mmHg Arterial Blood Partial Pressure O2 73.7 L 83.0-108.0 mmHg Arterial Blood HCO3 21.6 21.0-28.0 mmol/L Arterial Blood Oxygen Saturation 94.8 94.0-98.0 % Arterial Blood Base Excess -2.8 L -2.0-3.0 mmol/L Arterial Blood Oxyhemoglobin 93.1 L 94.0-98.0 % Arterial Blood Carboxyhemoglobin 1.3 0.5-1.5 % Arterial Blood Methemoglobin 0.5 0.0-1.5 % Greyson Test N/a Blood Gas Total Hemoglobin 17.20 13.5-17.5 g/dL Blood Gas Liter Flow 3.00 Blood Gas Modality Nasal cannula FiO2 % 32.0 Current Medications Medications (Trade) Dose Ordered Sig/Avni Route Start Time Stop Time Status Last Admin Albuterol (Ventolin Medneb) 2.5 mg ONCE ONCE NEB 10/17/24 19:15 10/17/24 19:16 DC 10/17/24 19:37 Ipratropium [place] (Atrovent Medneb) 0.5 mg ONCE ONCE NEB 10/17/24 19:15 10/17/24 19:16 DC 10/17/24 19:37 Furosemide (Lasix Injection) 20 mg ONCE ONCE IV 10/17/24 19:15 10/17/24 19:16 DC 10/17/24 19:44 Ceftriaxone Sodium 50 ml @ 100 mls/hr ONCE ONCE IV 10/17/24 20:15 10/17/24 20:52 DC 10/17/24 21:11 Vancomycin HCl 250 ml @ 250 mls/hr ONCE ONCE IV 10/17/24 20:15 10/17/24 21:14 DC 10/17/24 21:10 Insulin Human Regular (InsuLIN R) 10 units ONCE ONCE IV 10/17/24 20:45 10/17/24 20:52 DC 10/17/24 21:15 Dextrose 50 ml ONCE ONCE IV 10/17/24 20:45 10/17/24 20:52 DC 10/17/24 21:09 Albuterol (Ventolin Medneb) 15 mg ONCE ONCE NEB 10/17/24 20:45 10/17/24 20:52 DC 10/17/24 20:59 Sodium Bicarbonate 50 ml ONCE ONCE IV 10/17/24 20:45 10/17/24 20:52 DC 10/17/24 21:10 Calcium Gluconate/ Sodium Chloride 50 ml @ 120 mls/hr ONCE ONCE IV 10/17/24 20:45 10/17/24 21:09 DC 10/17/24 21:10 Zirconium Oxide (Lokelma) 10 gm ONCE ONCE PO 10/17/24 20:45 10/17/24 20:52 DC 10/17/24 21:09 Aspirin 162 mg ONCE ONCE PO 10/17/24 20:45 10/17/24 21:14 DC 10/17/24 21:33 Azithromycin 250 ml @ 125 mls/hr ONCE ONCE IV 10/17/24 20:45 10/17/24 22:44 DC 10/17/24 21:33 Methylprednisolone Sodium Succinate (Solu Medrol) 125 mg ONCE ONCE IV 10/17/24 20:45 10/17/24 21:14 DC 10/17/24 21:34 Sodium Chloride (Saline Lock Ns) 10 ml Q8HR IV 10/17/24 22:00 10/17/24 21:38 Atorvastatin Calcium (Lipitor) 10 mg HS PO 10/17/24 22:00 10/17/24 21:36 Carvedilol (Coreg Tablet) 3.125 mg Q12HR PO 10/17/24 22:00 10/17/24 21:38 CHEST RADIOGRAPH Indication: Shortness of breath Technique: Single frontal view of the chest was obtained COMPARISON: XY CHEST XRAY 1 VIEW on DOS: 03/31/24, XY CHEST PORTABLE on DOS: 03/29/24, XY CHEST PORTABLE on DOS: 10/04/23 FINDINGS: Lines and Tubes: None Lungs: There is new opacity in the left lower lobe consistent with pneumonia. Pleura: No significant pleural effusion. No pneumothorax. Cardiomediastinal contours: Unremarkable IMPRESSION: New opacity in the left lower lobe consistent with pneumonia. Time of 1ST Reevaluation: 19:04 Reevaluation 1ST: Unchanged Patient Education/Counseling: Diagnosis, Treatment Family Education/Counseling: No Family Present Departure 1 Departure Time of Disposition: 20:20 Impression: Primary Impression: Pneumonia Disposition: ADMITTED INPATIENT Condition: Stable Comments 69-year-old male with hypoxia, pneumonia. Elevated D-dimer possibly secondary to infection. Patient admitted for further treatment, evaluation and monitoring. Extensive evaluation was performed in attempt to identify or rule out: (See differential diagnosis section) The following tests were ordered, and results were reviewed by me and discussed with patient: (See diagnostic results section) The following test were independently interpreted by me: EKG I reviewed and agreed with the following test results read by other providers: Chest X ray I reviewed the following notes from the pt's past medical encounters: (None available at this time) Additional information was gathered from interviewing the following independent historians: EMS personnel Discussion of management or test interpretation with external physician/other qualified health adult live in caregiver: N/A Addressed an acute or chronic illness that poses a threat to life or bodily function: Hypoxia, pneumonia Decision regarding hospitalization or escalation of hospital level of care: Risk and benefits of admission for further treatment of patient's condition was considered. Due to patient's current clinical condition, high risk of decline and poor outcome if discharged and need for further inpatient management and monitoring, patient will be admitted to the hospital. Drug therapy requiring intensive monitoring for toxicity: IV furosemide Parenteral controlled substances: N/A Decision regarding elective major surgery with identified patient or procedure risk factors: N/A Decision regarding emergency major surgery: N/A Decision not to resuscitate or to de-escalate care because of poor prognosis: N/A Diagnosis or treatment significantly limited by social determinants of health: N/A Critical Care Note Critical Care Time?: Yes (35 min-critical care time only) Critical care comment: shortness of breath Stability Stability form required: No Heart Score Heart Score: Heart Score Response (Comments) Value History Moderate Suspicious 1 EKG Repolarization Disturb 1 Age >65 2 Risk Factors >3 or Hx ASHD 2 Troponin Normal limit 0 Total 6 I personally scribed for PHU AGRAWAL MD ([email or web address]) on 10/17/24 at 19:08. Electronically submitted by Donovan Pardo ([employer]). I personally scribed for PHU AGRAWAL MD ([email or web address]) on 10/17/24 at 20:15. Electronically submitted by Donovan Pardo ([employer]). PHU AGRAWAL MD Oct 17, 2024 19:08
[2024-10-17 19:29] LABS: Base Excess -2.8 mmol/L (-2.0-3.0)
[2024-10-17 19:30] VITALS: PULSE 83; RESP 20; O2SAT 95
--- NOTE | 2024-10-17 19:36 | DVH ---
Information about her making asks please answer question that I could never figure outN what do you wanna know why did they take CHEST RADIOGRAPH Indication: Shortness of breath Technique: Single frontal view of the chest was obtained COMPARISON: XY CHEST XRAY 1 VIEW on DOS: 03/31/24, XY CHEST PORTABLE on DOS: 03/29/24, XY CHEST PORTABL E on DOS: 10/04/23 FINDINGS: Lines and Tubes: None Lungs: There is new opacity in the left lower lobe consistent with pneumonia. Pleura: No significant pleural effusion. No pneumothorax. Cardiomediastinal contours: Unremarkable IMPRESSION: New opacity in the left lower lobe consistent with pneumonia.
[2024-10-17] MEDS: ALBUTEROL SULF 2.5 MG/0.5ML(0.5%) NEB SOLN NEB ONE ×2 (19:37→20:59)
[2024-10-17] MEDS: IPRATROPIUM BROM 0.5 MG/2.5ML INH SOL NEB ONE (19:37)
[2024-10-17] MEDS: FUROSEMIDE 40 MG/4 ML VIAL IV ONE (19:44)
[2024-10-17 19:48] LABS: Hematocrit 51.4 % (41.0-53.0); Hemoglobin 17.2 g/dL (13.5-17.5); Mean Corpuscular Hemoglobin 29.7 pg (28.0-32.0); Mean Corpuscular Hgb Conc. 33.4 g/dL (32.0-36.0); Mean Corpuscular Volume 89.1 fL (80.0-100.0); Platelet Count (auto) 160 10^3/uL (140-450); Red Blood Cells 5.78 10^6/uL (4.5-5.90)
[2024-10-17 19:53] LABS: Basophils % (manual) 0 (0.0-2.0); Blast Cells 0; Eosinophils % (manual) 0 (0-7); Metamyelocytes % 0; Myelocytes % 0; Promyelocytes % 0; Reactive Lymphocytes 0
[2024-10-17 20:05] LABS: Alanine Aminotransferase 34 U/L (7-40); Albumin 4.3 g/dL (3.2-4.8); Alkaline Phosphatase 99 U/L (46-116); Anion Gap 8 (5-15); Aspartate Aminotransferase 23 U/L (13-40); BUN/Creatinine Ratio 14.7 (10.0-20.0); Bilirubin, Total 1.1 mg/dL (0.2-1.0); Calcium 9.9 mg/dL (8.7-10.4); Carbon Dioxide 26 mmol/L (20-31); Chloride 102 mmol/L (98-107); Total Protein 6.5 g/dL (5.7-8.2)
[2024-10-17 20:12] LABS: Band Neutrophils % (manual) 6; Lymphocytes % (manual) 3 (10.0-50.0); Monocytes % (manual) 4 (0-12)
[2024-10-17 20:13] LABS: Platelet Estimate Adequate
[2024-10-17 20:15] LABS: Blood Urea Nitrogen 38 mg/dL (9-23); Glucose 308 mg/dL (74-106); Sodium 136 mmol/L (136-145)
[2024-10-17] MEDS ORDERED: DEXTROSE (50%) 50ML SYRG IV PRN (20:45)
[2024-10-17] MEDS ORDERED: HYDROcodone-ACET 5/325MG TAB PO PRN (20:45)
[2024-10-17] MEDS ORDERED: DOCUSATE SOD 100 MG CAP PO PRN (20:45)
[2024-10-17] MEDS ORDERED: ACETAMINOPHEN 325 MG TAB PO PRN (20:45)
[2024-10-17] MEDS ORDERED: ONDANSETRON HCL 4 MG/2 ML VIAL IV PRN (20:45)
[2024-10-17] MEDS: SODIUM ZIRCONIUM CYCL 10 GM PAK PO ONE (21:09)
[2024-10-17] MEDS: DEXTROSE (50%) 50ML SYRG IV ONE (21:09)
[2024-10-17 21:10] VITALS: BP 98/51; PULSE 93; RESP 18; TEMP 98.3; O2SAT 95
[2024-10-17] MEDS: SODIUM BICARB 8.4% 50Meq/50ml SYR INJ IV ONE (21:10)
[2024-10-17] MEDS: CALCIUM GLUC 1,000mg/50ml-NS 50 ML IV ONE (21:10)
[2024-10-17] MEDS: VANCOMYCIN 1GM/250ML KIT 250 ML IV ONE (21:10)
[2024-10-17] MEDS: cefTRIAXone 1GM/50ML D5W 50 ML IV ONE (21:11)
[2024-10-17 21:15] VITALS: O2SAT 95
[2024-10-17] MEDS: InsuLIN REG 1unit/0.01ml Soln (100units/ml) IV ONE (21:15)
[2024-10-17] MEDS: AZITHROMYCIN 500MG/ 250ML 250 ML IV ONE (21:33)
[2024-10-17] MEDS: ASPirin 81 mg TAB PO ONE (21:33)
[2024-10-17] MEDS: methylPREDNISolone SOD SUCC 125 MG/2 ML VL IV ONE (21:34)
[2024-10-17] MEDS: ATORVASTATIN 20 MG TAB PO SCH (21:36)
[2024-10-17] MEDS: SODIUM CHLOR 0.9% PF (SALINE LOCK) 10ML VIAL/SYR IV SCH (21:38)
[2024-10-17] MEDS: CARVEDILOL 3.125 MG TAB PO SCH (21:38)
--- NOTE | 2024-10-17 22:23 | DVHHP2 ---
History of Present Illness Reason for Visit: COPD with acute exacerbation History of Present Illness Patient is a 69-year-old male with past medical history of CVA, COPD, hyperlipidemia, kidney stones, and hypertension presented to [facility] ED with complaint of shortness of breaths. Patient reports symptoms progressively get worse with cough, increased work of breathing, getting worse that prompted this visit. Patient was seen and evaluated in the ED, laboratory data shows WBC 39.0, platelets 160, sodium 136, potassium 7.0, BUN 38, creatinine 2.59, GFR 26, glucose 308, lactic acid 4.0, troponin five, BNP 304.68, D-dimer 4.09. Chest x-ray revealing new patchy in the left lower lobes consistent with pneumonia. Patient was started on IV antibiotic regimen Zosyn, given IV Lasix, please see medication orders section in the computer. On my assessment, patient denied chest pain, no headache, no dizziness, no diaphoresis, abdominal pain, no diarrhea, no nausea, vomiting, no fever, no chills. Patient was admitted for further evaluation medical management. Past Medical History COPD, CVA, High Lipids, HTN, Kidney Stones Past Surgical History CABG Family History Reviewed, noncontributory to the management of this case. Past Social History Patient lives at home, quit smoking cigarettes greater than 1 year, denies alcohol or illicit drugs abuse. Review of Systems Constitutional: Yes: Weakness; No: Fever, Chills, Sweats, Malaise, Other Eyes: No: Pain, Vision change, Conjunctivae inflammation, Eyelid inflammation, Other, Redness ENT: No: Ear pain, Ear discharge, Nose pain, Nose discharge, Nose congestion, Mouth pain, Mouth swelling, Throat pain, Throat swelling, Other Respiratory: Cough, Shortness of breath, Other (SOB at rest); No: Dry, SOB with excertion, Wheezing, Hemoptysis, Pleuritic Pain, Sputum, Wheezing Cardiovascular: No: Chest Pain, Palpitations, Orthopnea, Paroxysmal Noc. Dyspnea, Edema, Lt Headedness, Other Gastrointestinal: No: Nausea, Vomiting, Abdominal Pain, Diarrhea, Constipation, Melena, Hematochezia, Other Genitourinary: No Dysuria, No Frequency, No Incontinence, No Hematuria, No Retention, No Other Musculoskeletal: No: other, neck pain, shoulder pain, arm pain, back pain, hand pain, leg pain, foot pain Skin: No: Rash, Lesions, Jaundice, Bruising, Other Neurological: No: Weakness, Numbness, Incoordination, Change in speech, Confusion, Seizures, Other Allergies: Coded Allergies: NO KNOWN ALLERGIES (Unverified , 06/14/21) Medications Current Medications Medications Dose Ordered Sig/Avni Route Start Time Stop Time Status Last Admin Dose Admin Albuterol 2.5 mg Q4HPRN PRN NEB 10/17/24 20:45 Ipratropium [place] 0.5 mg Q4HPRN PRN NEB 10/17/24 20:45 Aspirin 81 mg DAILY PO 10/18/24 10:00 Ceftriaxone Sodium 50 ml @ 100 mls/hr DAILY@09 IV 10/18/24 09:00 Azithromycin 250 ml @ 125 mls/hr DAILY IV 10/18/24 10:00 Methylprednisolone Sodium Succinate 40 mg Q8HR IV 10/18/24 06:00 Furosemide 40 mg DAILY IV 10/18/24 10:00 Diagnostic Test (Pha) 1 strip IQ4HR 10/18/24 00:00 Insulin Human Regular IQ4HR SC 10/18/24 00:00 Dextrose 50 ml UD PRN IV 10/17/24 20:45 Sodium Chloride 10 ml Q8HR IV 10/17/24 22:00 10/17/24 21:38 10 ML Acetaminophen/ Hydrocodone Bitart 1 tab Q4HP PRN PO 10/17/24 20:45 Ondansetron HCl 4 mg Q4HP PRN IV 10/17/24 20:45 Docusate Sodium 100 mg BIDPRN PRN PO 10/17/24 20:45 Acetaminophen 650 mg Q6HP PRN PO 10/17/24 20:45 Atorvastatin Calcium 10 mg HS PO 10/17/24 22:00 10/17/24 21:36 10 MG Carvedilol 3.125 mg Q12HR PO 10/17/24 22:00 10/17/24 21:38 3.125 MG Exam Vital Signs Vital Signs Date Time Temp Pulse Resp B/P (MAP) Pulse Ox O2 Delivery O2 Flow Rate FiO2 10/17/24 21:38 96 113/96 10/17/24 21:15 95 Nasal Cannula 3.0 10/17/24 21:15 32 10/17/24 21:10 98.3 18 98.3 General Appearance: Alert, Oriented X3, Cooperative, No acute distress HEENT: Atraumatic, PERRLA, EOMI, Mucous membr. moist/pink Respiratory: Clear to auscultation, Normal air movement Cardiovascular: Regular rate, Normal S1, Normal S2, No murmurs Abdominal: Normal bowel sounds, Soft, No tenderness, No hepatospenomegaly, No masses Extremities: No clubbing, No cyanosis, No edema, Normal pulses, No tenderness/swelling Skin: No rashes, No breakdown, No significant lesion Neuro: Normal speech, Normal tone, Sensation intact, Cranial nerves 3-12 NL, Reflexes 2+, Other (Generalized weakness) Psych/Mental Status: Mental status NL, Mood NL Labs/Xrays Labs Test 10/17/24 21:40 10/17/24 21:14 10/17/24 19:33 10/17/24 19:22 Range/Units POC Glucose 285 H 70-106 mg/dl White Blood Count 39.0 *H 4.4-10.8 10^3/uL Red Blood Count 5.78 4.5-5.90 10^6/uL Hemoglobin 17.2 13.5-17.5 g/dL Hematocrit 51.4 41.0-53.0 % Mean Corpuscular Volume 89.1 80.0-100.0 fL Mean Corpuscular Hemoglobin 29.7 28.0-32.0 pg Mean Corpuscular Hemoglobin Concent 33.4 32.0-36.0 g/dL Red Cell Distribution Width 15.0 H 11.8-14.3 % Platelet Count 160 140-450 10^3/uL Mean Platelet Volume 8.6 6.9-10.8 fL Neutrophils (%) (Auto) 37.0-80.0 % Lymphocytes (%) (Auto) 10.0-50.0 % Monocytes (%) (Auto) 0.0-12.0 % Basophils (%) (Auto) 0.0-2.0 % Neutrophils # (Auto) 1.6-8.6 10 ^3/uL Lymphocytes # (Auto) 0.4-5.4 10 ^3/uL Monocytes # (Auto) 0-1.3 10 ^3/uL Differential Total Cells Counted 100.0 100 Neutrophils % (Manual) 87 H 37.0-80.0 Band Neutrophils % (Manual) 6 Lymphocytes % (Manual) 3 L 10.0-50.0 Monocytes % (Manual) 4 0-12 Eosinophils % (Manual) 0 0-7 Basophils % (Manual) 0 0.0-2.0 Metamyelocytes % (manual) 0 Myelocytes % (Manual) 0 Promyelocytes % (Manual) 0 Blast Cells % (Manual) 0 Reactive Lymphocytes 0 Platelet Estimate Adequate D-Dimer, Quantitative 4.09 H 0.0-0.49 mg/L FEU Sodium Level 136 136-145 mmol/L Potassium Level 7.0 *H 3.5-5.1 mmol/L Chloride Level 102 98-107 mmol/L Carbon Dioxide Level 26 20-31 mmol/L Anion Gap 8 5-15 Blood Urea Nitrogen 38 H 9-23 mg/dL Creatinine 2.59 H 0.700-1.30 mg/dL Glomerular Filtration Rate Calc 26 >90 mL/min BUN/Creatinine Ratio 14.7 10.0-20.0 Serum Glucose 308 H 74-106 mg/dL Calcium Level 9.9 8.7-10.4 mg/dL Total Bilirubin 1.1 H 0.2-1.0 mg/dL Aspartate Amino Transferase (AST) 23 13-40 U/L Alanine Aminotransferase (ALT) 34 7-40 U/L Alkaline Phosphatase 99 46-116 U/L B-Type Natriuretic Peptide 304.68 0-100 pg/mL Total Protein 6.5 5.7-8.2 g/dL Albumin 4.3 3.2-4.8 g/dL Blood Gas Specimen Type Arterial Blood Gas Sample Site Right brachial Blood Gas Patient Temperature 37.0 Arterial Blood Date Drawn [id number] Arterial Blood pH 7.385 7.350-7.450 Arterial Blood Partial Pressure CO2 36.9 35.0-48.0 mmHg Arterial Blood Partial Pressure O2 73.7 L 83.0-108.0 mmHg Arterial Blood HCO3 21.6 21.0-28.0 mmol/L Arterial Blood Oxygen Saturation 94.8 94.0-98.0 % Arterial Blood Base Excess -2.8 L -2.0-3.0 mmol/L Arterial Blood Oxyhemoglobin 93.1 L 94.0-98.0 % Arterial Blood Carboxyhemoglobin 1.3 0.5-1.5 % Arterial Blood Methemoglobin 0.5 0.0-1.5 % Greyson Test N/a Blood Gas Total Hemoglobin 17.20 13.5-17.5 g/dL Blood Gas Liter Flow 3.00 Blood Gas Modality Nasal cannula FiO2 % 32.0 PATIENT: JARED GALEANA ACCT: [id number] UNIT: [id number] : 1955 LOC: ER ROOM / BED: / AGE / SEX: 69 / M ADM STATUS: REG ER SERVICE 02 ORDERING PHYSICIAN: PHU AGRAWAL MD PROCEDURE(s): CXR1 - CHEST XRAY 1 VIEW REASON: Shortness of breath ORDER NUMBER(s): [id number], ACCESSION NUMBER(s): [id number] Information about her making asks please answer question that I could never figure outN what do you wanna know why did they take CHEST RADIOGRAPH Indication: Shortness of breath Technique: Single frontal view of the chest was obtained COMPARISON: XY CHEST XRAY 1 VIEW on DOS: 03/31/24, XY CHEST PORTABLE on DOS: 03/29/24, XY CHEST PORTABLE on DOS: 10/04/23 FINDINGS: Lines and Tubes: None Lungs: There is new opacity in the left lower lobe consistent with pneumonia. Pleura: No significant pleural effusion. No pneumothorax. Cardiomediastinal contours: Unremarkable IMPRESSION: New opacity in the left lower lobe consistent with pneumonia. Assessment/Plan Assessment/Plan Pneumonia, unspecified organism Generalized weakness Acute renal failure Hyperkalemia COPD with acute exacerbation Sepsis, unspecified organisms Acute exacerbation of congestive heart failure Plan 1. Admit to telemetry unit 2. Breathing treatment 3. Pain control management 4. IV antibiotic management 5. Management of fluids and electrolytes 6. Consultation for nephrology/cardiology 7. Diagnostic test chest x-ray 8. DVT prophylaxis-on aspirin 9. Repeat labs CBC, CMP in a.m. 10. Home medication reviewed and reconciled 11. Continue with current medical management 12. Treatment plan discussed with patient and RN. Patient verbalized understanding. Plan discussed with: Patient, Other (RN) My Orders Orders - CAS POWELL DNP Procedure Category Date Status Time Albuterol Medneb PHA 10/17/24 In Process (Ventolin Medneb) 20:45 Ipratropium Medneb PHA 10/17/24 In Process (Atrovent Medneb) 20:45 Aspirin Tablet PHA 10/18/24 In Process 10:00 Ceftriaxone 1gm/50ml PHA 10/18/24 In Process D5w (Rocephin) 09:00 Azithromycin 500mg/ PHA 10/18/24 In Process 250ml (Zithromax 50 10:00 Azithromycin 500mg/ PHA 10/17/24 In Process 250ml (Zithromax 50 20:45 Furosemide Injection PHA 10/18/24 In Process (Lasix Injection) 10:00 *Consult CONS 10/17/24 Transmitted / 20:43 Consistent DIET 10/18/24 Transmitted Carb(Ccho)Diabetes Breakfast Glucose Blood PHA 10/18/24 In Process (Accu-Chek Comfort 00:00 Insulin R (Human) PHA 10/18/24 In Process (Insulin R) 00:00 Dextrose 50% Syringe PHA 10/17/24 In Process 20:45 Allergies BOOM 10/17/24 In Process 20:43 Code Status CODE 10/17/24 Transmitted 20:43 Sodium Chloride Lock PHA 10/17/24 In Process (Saline Lock Ns) 22:00 Oxygen Per Hour RT 10/17/24 Transmitted 20:43 Hydrocodone-Acet PHA 10/17/24 In Process 5/325mg Tab ([place] 20:45 Ondansetron Hcl PHA 10/17/24 In Process (Zofran) 20:45 Docusate Sodium PHA 10/17/24 In Process Capsule (Colace 20:45 Complete Blood Count LAB 10/18/24 Verified 04:00 Comprehensive LAB 10/18/24 Verified Metabolic Panel 04:00 Echo 2d Mode Cardiac US 10/17/24 Logged DOP 20:43 Condition: Serious BOOM 10/17/24 In Process 20:43 Acetaminophen Tablet PHA 10/17/24 In Process (Tylenol Tablet) 20:45 Bedrest With Bathroom BOOM 10/17/24 In Process Privileg 20:43 Sequential BOOM 10/17/24 In Process Compression Device Atorvastatin (Lipitor) PHA 10/17/24 In Process 22:00 Carvedilol Tablet PHA 10/17/24 In Process (Coreg Tablet) 22:00 *[facility] CONS 10/17/24 Transmitted -[place] 20:43 Methylprednisolone PHA 10/18/24 In Process Sod Succ (Solu Medrol 06:00 Admit ADMIT 10/17/24 Transmitted 22:21 Nitroglycerin PHA 10/17/24 Transmitted Sublingual (Ntrostat 22:30 Morphine Sulfate [facility] 10/17/24 Transmitted Injection 22:30 Notify Of Changes [facility] 10/17/24 Transmitted From Base 22:21 Associate Web Developer For [facility] 10/17/24 Transmitted 24 Hours 22:21 Emergency Dysrhythmia [facility] 10/17/24 Transmitted Protocol 22:21 Rhythm Strips Once [facility] 10/17/24 Transmitted Every Shift 22:21 Oxygen By Nasal RT 10/17/24 Transmitted Cannula 22:21 Problem List: (1) Pneumonia, unspecified organism (2) COPD with acute exacerbation (3) Hyperkalemia (4) Sepsis, unspecified organism (5) Acute renal failure (6) Generalized weakness (7) Acute exacerbation of congestive heart failure Date of Service: Oct 17, 2024 Billing Provider: CAS POWELL DNP Common Visit Codes: [id number] INP/OBS CARE (HIGH) CAS POWELL DNP Oct 17, 2024 22:23
[2024-10-17] MEDS ORDERED: MORPHINE SULFATE INJ 2 MG/ml SYRG IV PRN (22:30)
[2024-10-17] MEDS ORDERED: NITROGLYCERIN 0.4 MG SL TAB SL PRN (22:30)
[2024-10-17] MEDS ORDERED: VANCOMYCIN PER PHARMACY 0 MG IV SCH (23:00)
[2024-10-17] MEDS: VANCOMYCIN 1GM/250mL NS or D5W KIT IV SCH (23:00)
[2024-10-18] VITALS (10 sets, daily range): BP systolic 101–105; BP diastolic 53–57; PULSE 76–108; RESP 18–19; TEMP 97.9–98.3; O2SAT 92–98
[2024-10-18 00:32] LABS: Rapid Influenza A Negative (Negative); Rapid Influenza B Negative (Negative)
[2024-10-18 00:33] LABS: COVID19 ANTIGEN SOFIA FIA NEGATIVE (NEGATIVE)
[2024-10-18] MEDS: ACCU-CHEK COMFORT CURVE STRIP VI SCH (01:04)
[2024-10-18] MEDS: InsuLIN REG 1unit/0.01ml Soln (100units/ml) SC SCH (01:05)
[2024-10-18] MEDS: PIPERACILLIN-TAZOB 3.375GM 100 ML IV SCH (06:13)
[2024-10-18] MEDS: methylPREDNISolone SOD SUCC 40 MG/ML VL IV SCH (06:13)
[2024-10-18 06:50] LABS: Hemoglobin 15.2 g/dL (13.5-17.5); Platelet Count (auto) 143 10^3/uL (140-450)
[2024-10-18 06:53] LABS: Hematocrit 48.9 % (41.0-53.0); Mean Corpuscular Hemoglobin 28.5 pg (28.0-32.0); Mean Corpuscular Hgb Conc. 31.1 g/dL (32.0-36.0); Mean Corpuscular Volume 91.5 fL (80.0-100.0); Red Blood Cells 5.34 10^6/uL (4.5-5.90); Red Cell Distribution Width 15.2 % (11.8-14.3)
[2024-10-18 07:03] LABS: White Blood Cell 33.3 10^3/uL (4.4-10.8)
[2024-10-18 07:04] LABS: Basophils % (manual) 0 (0.0-2.0); Blast Cells 0; Eosinophils % (manual) 0 (0-7); Metamyelocytes % 0; Myelocytes % 0; Promyelocytes % 0; Reactive Lymphocytes 0
[2024-10-18 07:09] LABS: Alanine Aminotransferase 25 U/L (7-40); Alkaline Phosphatase 80 U/L (46-116); Anion Gap 9 (5-15); Bilirubin, Total 0.6 mg/dL (0.2-1.0); Calcium 9.5 mg/dL (8.7-10.4); Carbon Dioxide 26 mmol/L (20-31); Potassium 5.1 mmol/L (3.5-5.1); Total Protein 6.3 g/dL (5.7-8.2)
[2024-10-18 07:10] LABS: Aspartate Aminotransferase 10 U/L (13-40); Blood Urea Nitrogen 34 mg/dL (9-23); Chloride 97 mmol/L (98-107); Sodium 132 mmol/L (136-145)
[2024-10-18 07:14] LABS: Glucose 408 mg/dL (74-106)
[2024-10-18 08:36] LABS: Band Neutrophils % (manual) 14; Lymphocytes % (manual) 1 (10.0-50.0); Monocytes % (manual) 4 (0-12); Platelet Estimate Adequate
[2024-10-18] MEDS: FUROSEMIDE 40 MG/4 ML VIAL IV SCH (08:40)
[2024-10-18] MEDS: ASPirin 81 mg TAB PO SCH (08:46)
[2024-10-18] MEDS ORDERED: cefTRIAXone 1GM/50ML D5W 50 ML IV SCH (09:00)
[2024-10-18] MEDS ORDERED: AZITHROMYCIN 500MG/ 250ML 250 ML IV SCH (10:00)
--- NOTE | 2024-10-18 10:44 | DVHINCON2 ---
Date of service: Oct 18, 2024 Referring Physician Fernando Cruz NP Reason for Consultation Acute kidney injury History of Present Illness Mr. Padgett is a 69-year-old male with known history of hypertension, chronic kidney disease with baseline creatinine in the low two range, morbid obesity p resents for further evaluation and management of somewhat sudden onset of worsening dyspnea with cough. His clinical course has been notable for diagnosis of left-sided lobar community-acquired pneumonia. He was seen in his room this morning awake sitting at the edge of the bed and reports that his dyspnea has improved significantly since his admission. Past Medical History COPD, CVA, High Lipids, HTN, Kidney Stones Past Surgical History CABG Allergies: Coded Allergies: NO KNOWN ALLERGIES (Unverified , 06/14/21) Home Meds Active Scripts Furosemide (Furosemide) 40 Mg Tab, 1 TAB PO DAILY for 7 Days, #7 TAB 0 Refills Prov:DEE PACKER RESIDENT 04/02/24 Umeclidinium-Vilanterol (Anoro Ellipta 62.5-25 Mcg/INH) 1 Aer Aer, 1 AER IN DAILY for 30 Days, #1 AER 2 Refills Prov:DEE PACKER [facility] 04/02/24 Albuterol Sulfate (VENTOLIN MDI) 90 Mcg Ih, 90 MCG IN DAILYP PRN for 30 Days, #2 INH 2 Refills Prov:DEE PACKER [facility] 04/02/24 Doxycycline Hyclate (DOXYCYCLINE HYCLATE) 100 Mg Tab, 1 TAB PO BID for 5 Days, #10 TAB 0 Refills Prov:DEE PACKER [facility] 04/02/24 Prednisone (Prednisone) 20 Mg Tab, 20 MG PO DAILY for 5 Days, #20 MG 0 Refills Prov:ROSA PACKERU RESIDENT 04/02/24 Reported Medications Clonidine Hydrochloride (Clonidine Hcl) 0.1 Mg Tab, 1 TAB PO TID for 30 Days, #90 03/31/24 Amlodipine Besylate (Amlodipine Besylate) 5 Mg Tab, 1 TAB PO BID for 30 Days, #60 03/31/24 Aspirin (Aspirin Regular Strength) 325 Mg Tab, 1 TAB PO DAILY for 30 Days, #30 03/31/24 Simvastatin (Simvastatin) 40 Mg Tab, 1 TAB PO QPM for 30 Days 10/05/23 Propranolol Hcl (Inderal La) 80 Mg Cap, 1 CAP PO DAILY for 30 Days, #30 10/05/23 Lisinopril (Lisinopril) 40 Mg Tab, 1 TAB PO DAILY for 60 Days, #60 10/05/23 Current Medications Current Medications Medications (Trade) Dose Ordered Sig/Avni Route PRN Reason Start Time Stop Time Status Last Admin Albuterol (Ventolin Medneb) 2.5 mg Q4HPRN PRN NEB SHORTNESS OF BREATH 10/17/24 20:45 Ipratropium [place] (Atrovent Medneb) 0.5 mg Q4HPRN PRN NEB SHORTNESS OF BREATH 10/17/24 20:45 Aspirin 81 mg DAILY PO 10/18/24 10:00 10/18/24 08:46 Ceftriaxone Sodium 50 ml @ 100 mls/hr DAILY@09 IV 10/18/24 09:00 10/17/24 22:53 DC Azithromycin 250 ml @ 125 mls/hr DAILY IV 10/18/24 10:00 10/17/24 22:53 DC Methylprednisolone Sodium Succinate (Solu Medrol) 40 mg Q8HR IV 10/18/24 06:00 10/18/24 06:13 Furosemide (Lasix Injection) 40 mg DAILY IV 10/18/24 10:00 Diagnostic Test (Pha) (Accu-Chek Comfort Curve T) 1 strip IQ4HR 10/18/24 00:00 10/18/24 08:46 Insulin Human Regular (InsuLIN R) IQ4HR SC 10/18/24 00:00 10/18/24 08:54 Dextrose 50 ml UD PRN IV Blood Sugar LESS THAN 60 10/17/24 20:45 Sodium Chloride (Saline Lock Ns) 10 ml Q8HR IV 10/17/24 22:00 10/18/24 06:13 Acetaminophen/ Hydrocodone Bitart ([place] 5/325MG Tab) 1 tab Q4HP PRN PO MODERATE PAIN (4-6 PAIN SCALE) 10/17/24 20:45 Ondansetron HCl (Zofran) 4 mg Q4HP PRN IV NAUSEA / VOMITING 10/17/24 20:45 Docusate Sodium (Colace Capsule) 100 mg BIDPRN PRN PO FOR CONSTIPATION 10/17/24 20:45 Acetaminophen (Tylenol Tablet) 650 mg Q6HP PRN PO PAIN SCALE 1-3 OR TEMP>100.4 10/17/24 20:45 Atorvastatin Calcium (Lipitor) 10 mg HS PO 10/17/24 22:00 10/17/24 21:36 Carvedilol (Coreg Tablet) 3.125 mg Q12HR PO 10/17/24 22:00 10/17/24 21:38 Nitroglycerin (Ntrostat Sublingual) 0.4 mg Q5MINP PRN SL FOR CHEST PAIN 10/17/24 22:30 Morphine Sulfate 2 mg Q30M PRN IV FOR CHEST PAIN 10/17/24 22:30 Piperacillin Sod/ Tazobactam Sod 100 ml @ 25 mls/hr Q8HR IV 10/18/24 06:00 10/18/24 06:13 Vancomycin HCl 0 ml @ 0 mls/hr UD IV 10/17/24 23:00 UNV Vancomycin HCl 250 ml @ 250 mls/hr Q60M IV 10/17/24 23:00 10/18/24 00:59 DC 10/18/24 01:06 Family History: Diabetes mellitus G8 MOTHER, FH: aneurysm G8 FATHER (UNKNOWN HISTORY), Review of Systems Denies gross hematuria, dysuria, tea or Coca-Cola colored urine Denies excessive use of recent NSAIDs, foamy urine, recent IV contrast studies Denies recent chest pain, Denies fever, chills, nausea, vomiting, diarrhea Denies unintentional weight loss, night sweats Denies focal weakness, numbness + dyspnea, + cough H&P Exam Vital Signs/I&O Vital Sign Date Time Temp Pulse Resp B/P (MAP) Pulse Ox O2 Delivery O2 Flow Rate FiO2 10/18/24 08:49 94 Nasal Cannula 6.0 10/18/24 08:49 44 10/18/24 08:40 99 100/67 10/18/24 02:14 25 10/17/24 21:10 98.3 98.3 Intake and Output 10/17/24 10/18/24 19:00 07:00 Intake Total 975 ml Balance 975 ml Intake Oral 0 ml IV Total 975 ml Physical Exam Gen: nad, obese heent: nc/at, mmm lungs: Distant breath sounds, occasional rhonchi cvs: no rub abd: soft, bowel sounds audible ext: no edema skin: no rash neuro: alert and oriented Labs/Diagnostic Data Labs/Diagnostic Data Laboratory Tests Test 10/18/24 08:16 10/18/24 06:10 10/18/24 04:25 10/18/24 00:07 Range/Units POC Glucose 395 H 373 H 398 H 70-106 mg/dl White Blood Count 33.3 *H 4.4-10.8 10^3/uL Red Blood Count 5.34 4.5-5.90 10^6/uL Hemoglobin 15.2 13.5-17.5 g/dL Hematocrit 48.9 41.0-53.0 % Mean Corpuscular Volume 91.5 80.0-100.0 fL Mean Corpuscular Hemoglobin 28.5 28.0-32.0 pg Mean Corpuscular Hemoglobin Concent 31.1 L 32.0-36.0 g/dL Red Cell Distribution Width 15.2 H 11.8-14.3 % Platelet Count 143 140-450 10^3/uL Mean Platelet Volume 8.7 6.9-10.8 fL Neutrophils (%) (Auto) 37.0-80.0 % Lymphocytes (%) (Auto) 10.0-50.0 % Monocytes (%) (Auto) 0.0-12.0 % Basophils (%) (Auto) 0.0-2.0 % Neutrophils # (Auto) 1.6-8.6 10 ^3/uL Lymphocytes # (Auto) 0.4-5.4 10 ^3/uL Monocytes # (Auto) 0-1.3 10 ^3/uL Differential Total Cells Counted 100.0 100 Neutrophils % (Manual) 81 H 37.0-80.0 Band Neutrophils % (Manual) 14 Lymphocytes % (Manual) 1 L 10.0-50.0 Monocytes % (Manual) 4 0-12 Eosinophils % (Manual) 0 0-7 Basophils % (Manual) 0 0.0-2.0 Metamyelocytes % (manual) 0 Myelocytes % (Manual) 0 Promyelocytes % (Manual) 0 Blast Cells % (Manual) 0 Reactive Lymphocytes 0 Platelet Estimate Adequate Sodium Level 132 L 136-145 mmol/L Potassium Level 5.1 3.5-5.1 mmol/L Chloride Level 97 L 98-107 mmol/L Carbon Dioxide Level 26 20-31 mmol/L Anion Gap 9 5-15 Blood Urea Nitrogen 34 H 9-23 mg/dL Creatinine 2.84 H 0.700-1.30 mg/dL Glomerular Filtration Rate Calc 23 >90 mL/min BUN/Creatinine Ratio 12.0 10.0-20.0 Serum Glucose 408 #*H 74-106 mg/dL Calcium Level 9.5 8.7-10.4 mg/dL Total Bilirubin 0.6 0.2-1.0 mg/dL Aspartate Amino Transferase (AST) 10 L 13-40 U/L Alanine Aminotransferase (ALT) 25 7-40 U/L Alkaline Phosphatase 80 46-116 U/L Total Protein 6.3 5.7-8.2 g/dL Albumin 4.0 3.2-4.8 g/dL Test 10/17/24 23:51 10/17/24 22:45 10/17/24 21:40 10/17/24 21:14 Range/Units Influenza Type A Antigen Negative Negative Influenza Type B Antigen Negative Negative SARS-CoV-2 Antigen (Rapid) Negative NEGATIVE Troponin I High Sensitivity 4 4 </=54 ng/L Lactic Acid Level 5.0 *H 0.4-2.0 mmol/L POC Glucose 285 H 70-106 mg/dl Test 10/17/24 19:33 10/17/24 19:22 Range/Units White Blood Count 39.0 *H 4.4-10.8 10^3/uL Red Blood Count 5.78 4.5-5.90 10^6/uL Hemoglobin 17.2 13.5-17.5 g/dL Hematocrit 51.4 41.0-53.0 % Mean Corpuscular Volume 89.1 80.0-100.0 fL Mean Corpuscular Hemoglobin 29.7 28.0-32.0 pg Mean Corpuscular Hemoglobin Concent 33.4 32.0-36.0 g/dL Red Cell Distribution Width 15.0 H 11.8-14.3 % Platelet Count 160 140-450 10^3/uL Mean Platelet Volume 8.6 6.9-10.8 fL Neutrophils (%) (Auto) 37.0-80.0 % Lymphocytes (%) (Auto) 10.0-50.0 % Monocytes (%) (Auto) 0.0-12.0 % Basophils (%) (Auto) 0.0-2.0 % Neutrophils # (Auto) 1.6-8.6 10 ^3/uL Lymphocytes # (Auto) 0.4-5.4 10 ^3/uL Monocytes # (Auto) 0-1.3 10 ^3/uL Differential Total Cells Counted 100.0 100 Neutrophils % (Manual) 87 H 37.0-80.0 Band Neutrophils % (Manual) 6 Lymphocytes % (Manual) 3 L 10.0-50.0 Monocytes % (Manual) 4 0-12 Eosinophils % (Manual) 0 0-7 Basophils % (Manual) 0 0.0-2.0 Metamyelocytes % (manual) 0 Myelocytes % (Manual) 0 Promyelocytes % (Manual) 0 Blast Cells % (Manual) 0 Reactive Lymphocytes 0 Platelet Estimate Adequate D-Dimer, Quantitative 4.09 H 0.0-0.49 mg/L FEU Sodium Level 136 136-145 mmol/L Potassium Level 7.0 *H 3.5-5.1 mmol/L Chloride Level 102 98-107 mmol/L Carbon Dioxide Level 26 20-31 mmol/L Anion Gap 8 5-15 Blood Urea Nitrogen 38 H 9-23 mg/dL Creatinine 2.59 H 0.700-1.30 mg/dL Glomerular Filtration Rate Calc 26 >90 mL/min BUN/Creatinine Ratio 14.7 10.0-20.0 Serum Glucose 308 H 74-106 mg/dL Lactic Acid Level 4.0 *H 0.4-2.0 mmol/L Calcium Level 9.9 8.7-10.4 mg/dL Total Bilirubin 1.1 H 0.2-1.0 mg/dL Aspartate Amino Transferase (AST) 23 13-40 U/L Alanine Aminotransferase (ALT) 34 7-40 U/L Alkaline Phosphatase 99 46-116 U/L Troponin I High Sensitivity 5 </=54 ng/L B-Type Natriuretic Peptide 304.68 0-100 pg/mL Total Protein 6.5 5.7-8.2 g/dL Albumin 4.3 3.2-4.8 g/dL Blood Gas Specimen Type Arterial Blood Gas Sample Site Right brachial Blood Gas Patient Temperature 37.0 Arterial Blood Date Drawn [id number] Arterial Blood pH 7.385 7.350-7.450 Arterial Blood Partial Pressure CO2 36.9 35.0-48.0 mmHg Arterial Blood Partial Pressure O2 73.7 L 83.0-108.0 mmHg Arterial Blood HCO3 21.6 21.0-28.0 mmol/L Arterial Blood Oxygen Saturation 94.8 94.0-98.0 % Arterial Blood Base Excess -2.8 L -2.0-3.0 mmol/L Arterial Blood Oxyhemoglobin 93.1 L 94.0-98.0 % Arterial Blood Carboxyhemoglobin 1.3 0.5-1.5 % Arterial Blood Methemoglobin 0.5 0.0-1.5 % Greyson Test N/a Blood Gas Total Hemoglobin 17.20 13.5-17.5 g/dL Blood Gas Liter Flow 3.00 Blood Gas Modality Nasal cannula FiO2 % 32.0 Assessment IMP: 1) Hemodynamically mediated NARCISA/VMN in the setting of acute illness, lobar pneumonia 2) CKD IIIb 3) community-acquired lobar pneumonia 4) morbid obesity 5) type 2 diabetes REC: - we will check urine studies, FeNa, serial chemistry panel -avoidance of NSAIDs, intravenous contrast studies, Cas[place], ARB during time course of NARCISA - outpatient follow up in CKD Clinic upon discharge - discussed plan of care from Nephrology perspective with patient. Thank you for the consultation. Plan discussed with: Patient MENDEZ PARNELL MD Oct 18, 2024 10:44
[2024-10-18] MEDS: ENOXAPARIN SOD 100 MG/1 ML SYRINGE SC ONE (13:00)
[2024-10-18] MEDS: INSULIN LISPRO (HUMAN) 100 UNITS/ML ML SC ONE (13:02)
--- NOTE | 2024-10-18 13:40 | DVHINCON2 ---
Date of service: Oct 18, 2024 Referring Physician kelsey gtz Reason for Consultation copd History of Present Illness pt is a 69 yo male, mulitple medical problems, CVA, morbid obesity, COPD, CHF. Presented with worsening shortness of breath and cough, yellow mucus. pt requires suppl 02. in ER abg 7.38/37/P02=73, Cr elevated, CXR LLL infiltrate Family History: Diabetes mellitus G8 MOTHER, FH: aneurysm G8 FATHER (UNKNOWN HISTORY), Allergies: Coded Allergies: NO KNOWN ALLERGIES (Unverified , 06/14/21) Home Meds Active Scripts Furosemide (Furosemide) 40 Mg Tab, 1 TAB PO DAILY for 7 Days, #7 TAB 0 [facility] Umeclidinium-Vilanterol (Anoro Ellipta 62.5-25 Mcg/INH) 1 Aer Aer, 1 AER IN DAILY for 30 Days, #1 AER 2 [facility] 04/02/24 Albuterol Sulfate (VENTOLIN MDI) 90 Mcg Ih, 90 MCG IN DAILYP PRN for 30 Days, #2 INH 2 [facility] 04/02/24 Doxycycline Hyclate (DOXYCYCLINE HYCLATE) 100 Mg Tab, 1 TAB PO BID for 5 Days, #10 TAB 0 [facility] 04/02/24 Prednisone (Prednisone) 20 Mg Tab, 20 MG PO DAILY for 5 Days, #20 MG 0 [facility] 04/02/24 Reported Medications Clonidine Hydrochloride (Clonidine Hcl) 0.1 Mg Tab, 1 TAB PO TID for 30 Days, #90 03/31/24 Amlodipine Besylate (Amlodipine Besylate) 5 Mg Tab, 1 TAB PO BID for 30 Days, #60 03/31/24 Aspirin (Aspirin Regular Strength) 325 Mg Tab, 1 TAB PO DAILY for 30 Days, #30 03/31/24 Simvastatin (Simvastatin) 40 Mg Tab, 1 TAB PO QPM for 30 Days 10/05/23 Propranolol Hcl (Inderal La) 80 Mg Cap, 1 CAP PO DAILY for 30 Days, #30 10/05/23 Lisinopril (Lisinopril) 40 Mg Tab, 1 TAB PO DAILY for 60 Days, #60 3/2/24 Current Medications Current Medications Medications (Trade) Dose Ordered Sig/Avni Route PRN Reason Start Time Stop Time Status Last Admin Albuterol (Ventolin Medneb) 2.5 mg Q4HPRN PRN NEB SHORTNESS OF BREATH 10/17/24 20:45 Ipratropium [place] (Atrovent Medneb) 0.5 mg Q4HPRN PRN NEB SHORTNESS OF BREATH 10/17/24 20:45 Aspirin 81 mg DAILY PO 10/18/24 10:00 10/18/24 08:46 Ceftriaxone Sodium 50 ml @ 100 mls/hr DAILY@09 IV 10/18/24 09:00 10/17/24 22:53 DC Azithromycin 250 ml @ 125 mls/hr DAILY IV 10/18/24 10:00 10/17/24 22:53 DC Methylprednisolone Sodium Succinate (Solu Medrol) 40 mg Q8HR IV 10/18/24 06:00 10/18/24 06:13 Furosemide (Lasix Injection) 40 mg DAILY IV 10/18/24 10:00 10/18/24 13:04 DC Diagnostic Test (Pha) (Accu-Chek Comfort Curve T) 1 strip IQ4HR 10/18/24 00:00 10/18/24 12:34 Insulin Human Regular (InsuLIN R) IQ4HR SC 10/18/24 00:00 10/18/24 12:34 Dextrose 50 ml UD PRN IV Blood Sugar LESS THAN 60 10/17/24 20:45 Sodium Chloride (Saline Lock Ns) 10 ml Q8HR IV 10/17/24 22:00 10/18/24 06:13 Acetaminophen/ Hydrocodone Bitart ([place] 5/325MG Tab) 1 tab Q4HP PRN PO MODERATE PAIN (4-6 PAIN SCALE) 10/17/24 20:45 Ondansetron HCl (Zofran) 4 mg Q4HP PRN IV NAUSEA / VOMITING 10/17/24 20:45 Docusate Sodium (Colace Capsule) 100 mg BIDPRN PRN PO FOR CONSTIPATION 10/17/24 20:45 Acetaminophen (Tylenol Tablet) 650 mg Q6HP PRN PO PAIN SCALE 1-3 OR TEMP>100.4 10/17/24 20:45 Atorvastatin Calcium (Lipitor) 10 mg HS PO 10/17/24 22:00 10/17/24 21:36 Carvedilol (Coreg Tablet) 3.125 mg Q12HR PO 10/17/24 22:00 10/17/24 21:38 Nitroglycerin (Ntrostat Sublingual) 0.4 mg Q5MINP PRN SL FOR CHEST PAIN 10/17/24 22:30 Morphine Sulfate 2 mg Q30M PRN IV FOR CHEST PAIN 10/17/24 22:30 Piperacillin Sod/ Tazobactam Sod 100 ml @ 25 mls/hr Q8HR IV 10/18/24 06:00 10/18/24 06:13 Vancomycin HCl 0 ml @ 0 mls/hr UD IV 10/17/24 23:00 UNV Vancomycin HCl 250 ml @ 250 mls/hr Q60M IV 10/17/24 23:00 10/18/24 00:59 DC 10/18/24 01:06 Sodium Chloride 1,000 ml @ 100 mls/hr Q10H IV 10/18/24 13:00 10/18/24 22:59 UNV Enoxaparin Sodium (Lovenox) 110 mg Q12HR SC 10/18/24 22:00 UNV Insulin Human Isoph/Insulin Regular (HumuLIN 70/30) 25 units BID@08,18 SC 10/18/24 18:00 UNV Vital Signs Vital Signs Date Time Temp Pulse Resp B/P (MAP) Pulse Ox O2 Delivery O2 Flow Rate FiO2 10/18/24 08:49 94 Nasal Cannula 6.0 10/18/24 08:49 44 10/18/24 08:40 99 100/67 10/18/24 02:14 25 10/17/24 21:10 98.3 98.3 Labs/Diagnostic Data Labs Test 10/18/24 12:04 10/18/24 06:10 10/17/24 23:51 10/17/24 22:45 Range/Units POC Glucose 499 *H 70-106 mg/dl White Blood Count 33.3 *H 4.4-10.8 10^3/uL Red Blood Count 5.34 4.5-5.90 10^6/uL Hemoglobin 15.2 13.5-17.5 g/dL Hematocrit 48.9 41.0-53.0 % Mean Corpuscular Volume 91.5 80.0-100.0 fL Mean Corpuscular Hemoglobin 28.5 28.0-32.0 pg Mean Corpuscular Hemoglobin Concent 31.1 L 32.0-36.0 g/dL Red Cell Distribution Width 15.2 H 11.8-14.3 % Platelet Count 143 140-450 10^3/uL Mean Platelet Volume 8.7 6.9-10.8 fL Neutrophils (%) (Auto) 37.0-80.0 % Lymphocytes (%) (Auto) 10.0-50.0 % Monocytes (%) (Auto) 0.0-12.0 % Basophils (%) (Auto) 0.0-2.0 % Neutrophils # (Auto) 1.6-8.6 10 ^3/uL Lymphocytes # (Auto) 0.4-5.4 10 ^3/uL Monocytes # (Auto) 0-1.3 10 ^3/uL Differential Total Cells Counted 100.0 100 Neutrophils % (Manual) 81 H 37.0-80.0 Band Neutrophils % (Manual) 14 Lymphocytes % (Manual) 1 L 10.0-50.0 Monocytes % (Manual) 4 0-12 Eosinophils % (Manual) 0 0-7 Basophils % (Manual) 0 0.0-2.0 Metamyelocytes % (manual) 0 Myelocytes % (Manual) 0 Promyelocytes % (Manual) 0 Blast Cells % (Manual) 0 Reactive Lymphocytes 0 Platelet Estimate Adequate Sodium Level 132 L 136-145 mmol/L Potassium Level 5.1 3.5-5.1 mmol/L Chloride Level 97 L 98-107 mmol/L Carbon Dioxide Level 26 20-31 mmol/L Anion Gap 9 5-15 Blood Urea Nitrogen 34 H 9-23 mg/dL Creatinine 2.84 H 0.700-1.30 mg/dL Glomerular Filtration Rate Calc 23 >90 mL/min BUN/Creatinine Ratio 12.0 10.0-20.0 Serum Glucose 408 #*H 74-106 mg/dL Hemoglobin A1c 11.4 H <5.7 % A1C Calcium Level 9.5 8.7-10.4 mg/dL Total Bilirubin 0.6 0.2-1.0 mg/dL Aspartate Amino Transferase (AST) 10 L 13-40 U/L Alanine Aminotransferase (ALT) 25 7-40 U/L Alkaline Phosphatase 80 46-116 U/L Total Protein 6.3 5.7-8.2 g/dL Albumin 4.0 3.2-4.8 g/dL Influenza Type A Antigen Negative Negative Influenza Type B Antigen Negative Negative SARS-CoV-2 Antigen (Rapid) Negative NEGATIVE Troponin I High Sensitivity 4 </=54 ng/L Test 10/17/24 21:40 10/17/24 19:33 10/17/24 19:22 Range/Units Lactic Acid Level 5.0 *H 0.4-2.0 mmol/L D-Dimer, Quantitative 4.09 H 0.0-0.49 mg/L FEU B-Type Natriuretic Peptide 304.68 0-100 pg/mL Blood Gas Specimen Type Arterial Blood Gas Sample Site Right brachial Blood Gas Patient Temperature 37.0 Arterial Blood Date Drawn [id number] Arterial Blood pH 7.385 7.350-7.450 Arterial Blood Partial Pressure CO2 36.9 35.0-48.0 mmHg Arterial Blood Partial Pressure O2 73.7 L 83.0-108.0 mmHg Arterial Blood HCO3 21.6 21.0-28.0 mmol/L Arterial Blood Oxygen Saturation 94.8 94.0-98.0 % Arterial Blood Base Excess -2.8 L -2.0-3.0 mmol/L Arterial Blood Oxyhemoglobin 93.1 L 94.0-98.0 % Arterial Blood Carboxyhemoglobin 1.3 0.5-1.5 % Arterial Blood Methemoglobin 0.5 0.0-1.5 % Greyson Test N/a Blood Gas Total Hemoglobin 17.20 13.5-17.5 g/dL Blood Gas Liter Flow 3.00 Blood Gas Modality Nasal cannula FiO2 % 32.0 Plan/Recommendation COPD pneumonia NARCISA hypoxemia plan suppl 02 abx diurese glycemic control gi and dvt proph LUIS GÓMEZ MD Oct 18, 2024 13:40
--- NOTE | 2024-10-18 14:15 | DVH ---
US BiLat Lower DVT HISTORY: dvt COMPARISON: None TECHNIQUE: Duplex Doppler evaluation of the deep venous system of the lower extremity from the common femoral veins, superficial femoral vein, great saphenous vein, deep femoral vein, popliteal vein, an d calf veins, including color Doppler and spectral/pulsed waveform analysis, was performed. FINDINGS: Right: - Common femoral vein: Compressible - Deep femoral vein: Compressible - Femoral vein: Compress ible - Popliteal vein: Compressible - Posterior tibial vein: Waveforms present - Left: - Common femoral vein: Compressible - Deep femoral vein: Compressible - Femoral vein: Compressi ble - Popliteal vein: Compressible - Posterior tibial vein: Waveforms present -Other: Nothing IMPRESSION: 1. No right or left lower extremity deep venous thrombosis.
--- NOTE | 2024-10-18 14:28 | DVHPN2 ---
Subjective Seen and examined at bedside. Patient is on 6L oxygen. Wears 2L home oxygen. Will get VQ Scan to rule out PE. Changes from previous H/P or p: No Changes Eyes: No Pain, No Vision change, No Conjunctivae inflammation, No Eyelid inflammation, No Other, No Redness ENT: No Ear pain, No Ear discharge, No Nose pain, No Nose discharge, No Nose congestion, No Mouth pain, No Mouth swelling, No Throat pain, No Throat swelling, No Other Cardiovascular: No Chest Pain, No Palpitations, No Orthopnea, No Paroxysmal Noc. Dyspnea, No Edema, No Lt Headedness, No Other Respiratory: Cough; No Dry; Shortness of breath; No SOB with excertion, No Wheezing, No Hemoptysis, No Pleuritic Pain, No Sputum; Other (SOB at rest) Gastrointestinal: No Nausea, No Vomiting, No Abdominal Pain, No Diarrhea, No Constipation, No Melena, No Hematochezia, No Other Genitourinary: No Dysuria, No Frequency, No Incontinence, No Hematuria, No Retention, No Other Musculoskeletal: No other, No neck pain, No shoulder pain, No arm pain, No back pain, No hand pain, No leg pain, No foot pain Skin: No Rash, No Lesions, No Jaundice, No Bruising, No Other Objective Vitals Vital Signs Date Time Temp Pulse Resp B/P (MAP) Pulse Ox O2 Delivery O2 Flow Rate FiO2 10/18/24 13:00 97.9 86 18 105/57 (73) 94 97.9 10/18/24 08:49 Nasal Cannula 6.0 10/18/24 08:49 44 Intake/Output Intake and Output 10/18/24 07:00 Intake Total 975 ml Balance 975 ml Intake Oral 0 ml IV Total 975 ml Exam Gen: in bed mild distress Cvs: N S1/S2, RRR Resp: Diminished with few wheezes Abd: Morbidly Obese Survey 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: AAO x 4 Medications Current Medications Medications Dose Ordered Sig/Avni Route Start Time Stop Time Status Last Admin Dose Admin Albuterol 2.5 mg Q4HPRN PRN NEB 10/17/24 20:45 Ipratropium [place] 0.5 mg Q4HPRN PRN NEB 10/17/24 20:45 Aspirin 81 mg DAILY PO 10/18/24 10:00 10/18/24 08:46 81 MG Methylprednisolone Sodium Succinate 40 mg Q8HR IV 10/18/24 06:00 10/18/24 06:13 40 MG Diagnostic Test (Pha) 1 strip IQ4HR 10/18/24 00:00 10/18/24 12:34 1 STRIP Insulin Human Regular IQ4HR SC 10/18/24 00:00 10/18/24 12:34 15 UNITS Dextrose 50 ml UD PRN IV 10/17/24 20:45 Sodium Chloride 10 ml Q8HR IV 10/17/24 22:00 10/18/24 06:13 10 ML Acetaminophen/ Hydrocodone Bitart 1 tab Q4HP PRN PO 10/17/24 20:45 Ondansetron HCl 4 mg Q4HP PRN IV 10/17/24 20:45 Docusate Sodium 100 mg BIDPRN PRN PO 10/17/24 20:45 Acetaminophen 650 mg Q6HP PRN PO 10/17/24 20:45 Atorvastatin Calcium 10 mg HS PO 10/17/24 22:00 10/17/24 21:36 10 MG Carvedilol 3.125 mg Q12HR PO 10/17/24 22:00 10/17/24 21:38 3.125 MG Nitroglycerin 0.4 mg Q5MINP PRN SL 10/17/24 22:30 Morphine Sulfate 2 mg Q30M PRN IV 10/17/24 22:30 Piperacillin Sod/ Tazobactam Sod 100 ml @ 25 mls/hr Q8HR IV 10/18/24 06:00 10/18/24 06:13 25 MLS/HR Vancomycin HCl 0 ml @ 0 mls/hr UD IV 10/17/24 23:00 UNV Sodium Chloride 1,000 ml @ 100 mls/hr Q10H IV 10/18/24 13:00 10/18/24 22:59 Enoxaparin Sodium 110 mg Q12HR SC 10/18/24 22:00 UNV Insulin Human Isoph/Insulin Regular 25 units BID@08,18 SC 10/18/24 18:00 UNV Laboratory Results Laboratory Tests 10/18/24 06:10 Chemistry Test 10/17/24 19:33 10/18/24 06:10 Albumin 4.3 g/dL (3.2-4.8) 4.0 g/dL (3.2-4.8) Calcium Level 9.9 mg/dL (8.7-10.4) 9.5 mg/dL (8.7-10.4) Total Protein 6.5 g/dL (5.7-8.2) 6.3 g/dL (5.7-8.2) Coagulation Test 10/17/24 19:33 D-Dimer, Quantitative 4.09 mg/L FEU (0.0-0.49) H Cardiac Markers Test 10/17/24 19:33 B-Type Natriuretic Peptide 304.68 pg/mL (0-100) LFT Test 10/17/24 19:33 10/18/24 06:10 Alanine Aminotransferase (ALT) 34 U/L (7-40) 25 U/L (7-40) Alkaline Phosphatase 99 U/L (46-116) 80 U/L (46-116) Aspartate Amino Transferase (AST) 23 U/L (13-40) 10 U/L (13-40) L Total Bilirubin 1.1 mg/dL (0.2-1.0) H 0.6 mg/dL (0.2-1.0) HgA1c, TSH Test 10/18/24 06:10 Hemoglobin A1c 11.4 % A1C (<5.7) H Blood Gas Results Test 10/17/24 19:22 Arterial Blood pH 7.385 (7.350-7.450) FiO2 % 32.0 Assessment/Plan Assessment/Plan # Sepsis - Possible due to Aspiration PNA - Cultures - Abx # Aspiration PNA? 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 Critical care time 38 mins Plan discussed with: Patient My Orders Orders - KOLE SADLER MD Procedure Category Date Status Time Sodium Chloride 0.9% PHA 10/18/24 In Process 13:00 Bilat Lower Dvt US 10/18/24 Resulted 12:54 Enoxaparin Sodium PHA 10/18/24 Logged (Lovenox) 22:00 Insulin 70/30 (Human) PHA 10/18/24 Logged (Humulin 70/30) 18:00 Nm Vq Scan NM 10/18/24 Logged 12:54 Basic Metabolic Panel LAB 10/19/24 Verified 04:00 Complete Blood Count LAB 10/19/24 Verified 04:00 Sputum Induction RT 10/18/24 Logged 12:54 Respiratory Culture SERAFIN 10/18/24 Logged W/ Gs 12:54 Urinalysis LAB 10/18/24 Logged 14:21 Drug Screen LAB 10/18/24 Logged 14:[address] 10/18/24 Logged 14:21 Atorvastatin (Lipitor) PHA 10/18/24 Transmitted 22:00 Azithromycin Tablet PHA 10/19/24 Transmitted (Zithromax Tablet) 10:00 Date of Service: Oct 18, 2024 Billing Provider: KOLE SADLER MD Common Visit Codes: [id number] CARE 30-74 MIN KOLE SADLER MD Oct 18, 2024 14:28
[2024-10-18 15:39] LABS: Lactic Acid w/Reflex 3.6 mmol/L (0.4-2.0)
--- NOTE | 2024-10-18 15:39 | DVH ---
Procedure: CT CHEST WITHOUT CONTRAST Reason for study/Clinical History: PNA/COPD Comparison Study: None available at time of dictation. Exam Date: 10/18/2024 03:08 PM TECHNIQUE: Multidetector CT of the chest was performed from the lung apices to the upper abdomen with out the use of intravenous contract. Axial, coronal and sagittal multiplanar reformats were performed . Radiation Dose Information: CT Dose: CTDI volume is 30.18 mGy. Dose-length product is 1210.67 mGy*cm The dose indicators for CT are the volume Computed Tomography (CT) Dose Index (CTDIvol) and the Dose Length Product (DLP), and are measured in units of mGy and mGy-cm, respectively. These indicators are not patient dose, but values generated from the CT scanner acquisition factors. The report includes radiation exposure data for exposures received during this examination. FINDINGS: Lower neck: Normal thyroid. Lungs: Severe COPD and emphysematous changes with multiple bullae bilaterally. There is an infiltra te in the left lower lobe. Heart/Vascular Structures: Normal heart size. No pericardial effusion. Lymph Nodes: No adenopathy Pleura: No pleural effusion or significant pneumothorax. Musculoskeletal: No acute osseous abnormality. Soft tissues: Normal. Upper abdomen: Limited portions of the upper abdomen are unremarkable. IMPRESSION: 1. Airspace disease left lower lobe with consolidation. 2. Emphysematous changes with multiple bilateral bullae. Radiation optimization: All CT scans at this facility use at least one of these dose optimization jarvis hniques: automated exposure control mA and/or kV adjustment per patient size (includes targeted exam s where dose is matched to clinical indication) or iterative reconstruction. HS:Y
[2024-10-18] MEDS: SODIUM CHLORIDE 0.9% 1,000 ML IV SCH (15:59)
[2024-10-18] MEDS: ENOXAPARIN SOD 120 MG/0.8 ML SYRINGE SC ONE ×2 (16:00→20:20)
[2024-10-18 18:19] LABS: Urine Bacteria None Seen /hpf (None Seen)
[2024-10-18 18:31] LABS: Urine Blood 2+ /uL (Negative); Urine Clarity Clear (Clear); Urine Color Light-Yellow (Yellow); Urine Protein, UAD 2+ (Negative); Urine Specific Gravity 1.022 (1.001-1.035); Urine Squamous Epithelial Cell None Seen /hpf (<5); Urine Urobilinogen Normal (Negative); Urine WBC 1 /HPF (0-3)
[2024-10-18 18:41] LABS: Amphetamine Screen, Urine Neg (NEGATIVE); Barbiturate Scree,Urine Neg (NEGATIVE); Benzodiazephine Screen, Urine Neg (NEGATIVE); Cannabinoid Screen, Urine Neg (NEGATIVE); Cocaine Screen, Urine Neg (NEGATIVE); Opiate Scree,Urine Neg (NEGATIVE); Phencyclidine Screen, Urine Neg (NEGATIVE)
[2024-10-18 18:46] LABS: Lactic Acid w/Reflex 3.9 mmol/L (0.4-2.0)
[2024-10-18] MEDS: INSULIN 70/30 1unit/0.01ml Susp (100units/ml) SC SCH (20:05)
[2024-10-18] MEDS: IPRATROPIUM BROM 0.5 MG/2.5ML INH SOL NEB PRN (20:18)
[2024-10-18] MEDS: ALBUTEROL SULF 2.5 MG/0.5ML(0.5%) NEB SOLN NEB PRN (20:18)
--- NOTE | 2024-10-18 20:45 | DVHSR ---
APPROVED REPORT EXAM: LIMITED Two-dimensional and M-mode echocardiogram with Doppler and color Doppler. Blood Pressure: 105/62 mmHg INDICATION CHF exacerbation, unspecified RISK FACTORS Height: 66, Weight: 249 DIMENSIONS LVDd4.1 (3.8-5.7cm)LA (2D) (1.9-4.0cm)Aortic Root (2.0-3.7cm) LVDs3.1 (2.5-4.0cm)LA (MM) (1.9-4.0cm)Aortic Cusp Exc (1.5-2.0cm) EF (%) 50.0 (55-70%)Rt. Atrium (1.9-4.0cm)Asc. Aorta cm Mitral Valve MitralMitral Stenosis E wave0.77m/sMV Mean GR.mmHg A wave1.12m/sMV Peak GR.mmHg E/A ratio0.72D MVAcm2 DECEL [id number] 1/2 Qacu42kt IVRTmsDop MVA3.92cm2 Aortic Valve Aortic ValveAortic Stenosis V11.47m/Param Mean GR.5mmHg V21.51m/Param Peak GR.9mmHg Other Information Technically limited study due to body habitus, patient position and patient moving. 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
[2024-10-18] MEDS: ATORVASTATIN 20 MG TAB PO SCH (21:39)
[2024-10-18] MEDS ORDERED: VANCOMYCIN 1.5GM/300ML 300 ML IV ONE (23:00)
[2024-10-19] VITALS (12 sets, daily range): BP systolic 85–104; BP diastolic 50–69; PULSE 62–113; RESP 17–69; TEMP 97.8–98.2; O2SAT 92–99
[2024-10-19 06:30] LABS: Red Cell Distribution Width 15.1 % (11.8-14.3)
[2024-10-19 06:33] LABS: Hemoglobin 14.6 g/dL (13.5-17.5); Mean Corpuscular Hemoglobin 29.6 pg (28.0-32.0); Mean Corpuscular Hgb Conc. 33.3 g/dL (32.0-36.0); Platelet Count (auto) 158 10^3/uL (140-450); Red Blood Cells 4.94 10^6/uL (4.5-5.90)
[2024-10-19 06:41] LABS: Chloride 101 mmol/L (98-107); Potassium 4.9 mmol/L (3.5-5.1); Sodium 137 mmol/L (136-145)
[2024-10-19 06:42] LABS: Anion Gap 10 (5-15); Carbon Dioxide 26 mmol/L (20-31)
[2024-10-19 06:47] LABS: Glucose 344 mg/dL (74-106); White Blood Cell 30.4 10^3/uL (4.4-10.8)
[2024-10-19 06:49] LABS: BUN/Creatinine Ratio 20.9 (10.0-20.0); Blood Urea Nitrogen 61 mg/dL (9-23); Lactic Acid w/Reflex 3.1 mmol/L (0.4-2.0)
[2024-10-19 06:50] LABS: Basophils % (manual) 0 (0.0-2.0); Blast Cells 0; Eosinophils % (manual) 0 (0-7); Metamyelocytes % 0; Myelocytes % 0; Promyelocytes % 0; Reactive Lymphocytes 0
[2024-10-19] MEDS: AZITHROMYCIN 250 MG TAB PO SCH (08:21)
[2024-10-19] MEDS: ENOXAPARIN SOD 120 MG/0.8 ML SYRINGE SC SCH (08:22)
[2024-10-19 09:29] LABS: Band Neutrophils % (manual) 21; Lymphocytes % (manual) 2 (10.0-50.0); Monocytes % (manual) 3 (0-12)
[2024-10-19 09:30] LABS: Platelet Estimate Adequate
--- NOTE | 2024-10-19 13:54 | ECG ---
[facility] Test Date: 2024-10-17 Test Time: 18:24:31 Pat Name: JARED GALEANA Department: ER Room: 0218T B Gender: M Stitch Wheeler: KIMMIE : 1955 Requested By: PHU AGRAWAL Order Number: [id number] Reading MD: Ramirez Bryant Measurements Intervals Pool Rate: 100 P: 24 MA: 182 QRS: -20 QRSD: 87 T: 59 QT: 325 QTc: 420 Interpretive Statements Sinus tachycardia Probable left atrial enlargement Borderline left axis deviation Anteroseptal infarct, age indeterminate Electronically Signed On 10-19-2024 19:09:51 PDT by Ramirez Bryant Please click the below link to view image of tracing.
--- NOTE | 2024-10-19 14:32 | DVH ---
NUCLEAR MEDICINE VENTILATION/PERFUSION LUNG SCAN. INDICATION: PULMONARY EMBOLISM COMPARISON: None TECHNIQUE: Following intravenous demonstration of 61 millicuries of technetium 99m MAA, and inhalat ion of 5.3 mCi of xenon 133 scintigrams were obtained in multiple projections of the lungs. FINDINGS: There is normal uptake of radionuclide on both the ventilation and perfusion portions of the examinat ion. No mismatched perfusion defects are demonstrated. Uptake is normally homogeneous. IMPRESSION: 1. Low probability for PE.
[2024-10-19] MEDS: VANCOMYCIN 1.75GM/350ML 350 ML IV ONE (14:58)
--- NOTE | 2024-10-19 15:08 | DVHPN2 ---
Subjective Seen and examined at bedside. Patient is on 3L oxygen. Wears 2L home oxygen. PE and DVT ruled out. WBC quite elevated. Changes from previous H/P or p: No Changes Eyes: No Pain, No Vision change, No Conjunctivae inflammation, No Eyelid inflammation, No Other, No Redness ENT: No Ear pain, No Ear discharge, No Nose pain, No Nose discharge, No Nose congestion, No Mouth pain, No Mouth swelling, No Throat pain, No Throat swelling, No Other Cardiovascular: No Chest Pain, No Palpitations, No Orthopnea, No Paroxysmal Noc. Dyspnea, No Edema, No Lt Headedness, No Other Respiratory: Cough; No Dry; Shortness of breath; No SOB with excertion, No Wheezing, No Hemoptysis, No Pleuritic Pain, No Sputum; Other (SOB at rest) Gastrointestinal: No Nausea, No Vomiting, No Abdominal Pain, No Diarrhea, No Constipation, No Melena, No Hematochezia, No Other Genitourinary: No Dysuria, No Frequency, No Incontinence, No Hematuria, No Retention, No Other Musculoskeletal: No other, No neck pain, No shoulder pain, No arm pain, No back pain, No hand pain, No leg pain, No foot pain Skin: No Rash, No Lesions, No Jaundice, No Bruising, No Other Objective Vitals Vital Signs Date Time Temp Pulse Resp B/P (MAP) Pulse Ox O2 Delivery O2 Flow Rate FiO2 10/19/24 12:56 97.8 79 19 100/57 (71) 94 97.8 10/19/24 10:00 Nasal Cannula* 3 32 Intake/Output Intake and Output 10/19/24 07:00 Intake Total 1652.5 ml Output Total 250 ml Balance 1402.5 ml Intake Oral 1040 ml IV Total 612.5 ml Output Urine Total 250 ml # Voids 3 # Bowel Movements 3 Exam Gen: in bed no distress Cvs: N S1/S2, RRR Resp: Diminished with few wheezes Abd: 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 Medications Current Medications Medications Dose Ordered Sig/Avni Route Start Time Stop Time Status Last Admin Dose Admin Albuterol 2.5 mg Q4HPRN PRN NEB 10/17/24 20:45 10/18/24 20:18 2.5 MG Ipratropium [place] 0.5 mg Q4HPRN PRN NEB 10/17/24 20:45 10/18/24 20:18 0.5 MG Aspirin 81 mg DAILY PO 10/18/24 10:00 10/19/24 08:22 81 MG Methylprednisolone Sodium Succinate 40 mg Q8HR IV 10/18/24 06:00 10/19/24 14:58 40 MG Diagnostic Test (Pha) 1 strip IQ4HR 10/18/24 00:00 10/19/24 12:12 1 STRIP Insulin Human Regular IQ4HR SC 10/18/24 00:00 10/19/24 12:08 15 UNITS Dextrose 50 ml UD PRN IV 10/17/24 20:45 Sodium Chloride 10 ml Q8HR IV 10/17/24 22:00 10/19/24 13:56 10 ML Acetaminophen/ Hydrocodone Bitart 1 tab Q4HP PRN PO 10/17/24 20:45 Ondansetron HCl 4 mg Q4HP PRN IV 10/17/24 20:45 Docusate Sodium 100 mg BIDPRN PRN PO 10/17/24 20:45 Acetaminophen 650 mg Q6HP PRN PO 10/17/24 20:45 Carvedilol 3.125 mg Q12HR PO 10/17/24 22:00 10/17/24 21:38 3.125 MG Nitroglycerin 0.4 mg Q5MINP PRN SL 10/17/24 22:30 Morphine Sulfate 2 mg Q30M PRN IV 10/17/24 22:30 Piperacillin Sod/ Tazobactam Sod 100 ml @ 25 mls/hr Q8HR IV 10/18/24 06:00 10/19/24 06:12 25 MLS/HR Vancomycin HCl 0 ml @ 0 mls/hr UD IV 10/17/24 23:00 Hold Enoxaparin Sodium 110 mg DAILY SC 10/19/24 10:00 10/19/24 08:22 110 MG Insulin Human Isoph/Insulin Regular 25 units BID@08,18 SC 10/18/24 18:00 10/19/24 08:20 25 UNITS Atorvastatin Calcium 40 mg HS PO 10/18/24 22:00 10/18/24 21:39 40 MG Azithromycin 500 mg DAILY PO 10/19/24 10:00 10/23/24 09:59 10/19/24 08:21 500 MG Laboratory Results Laboratory Tests 10/19/24 06:05 Chemistry Test 10/19/24 06:05 Calcium Level 9.0 mg/dL (8.7-10.4) Urinalysis Test 10/18/24 17:24 Urine Color Light-yellow (Yellow) Urine Clarity Clear (Clear) Urine pH 5.0 (5.0-9.0) Urine Specific [place] 1.022 (1.001-1.035) Urine Protein 2+ (Negative) H Urine Ketones 1+ (Negative) H Urine Blood 2+ /uL (Negative) H Urine Nitrite Negative (Negative) Urine Bilirubin Negative (Negative) Urine Urobilinogen Normal mg/dL (Negative) Urine Leukocyte Esterase Negative /uL (Negative) Urine RBC 27 /hpf (0 - 3) Urine Microscopic WBC 1 /HPF (0-3) Urine Squamous Epithelial Cells None seen /hpf (<5) Urine Bacteria None seen /hpf (None Seen) Urine Glucose 4+ mg/dL (Normal) H Microbiology Microbiology Date/Time Source Procedure Growth Status 10/17/24 23:28 Blood Blood Culture - Preliminary NO GROWTH AFTER 24 HOURS OF INCUBATION. Resulted Assessment/Plan Assessment/Plan # Sepsis - Possible due to Aspiration PNA - Cultures - Abx # Aspiration PNA? - Cultures - Abx # Acute Hypoxic on Chronic Resp Failure - Titrate Oxygen Down # COPD Exacerbation - Bronchodilators # Elevated D-Dimer - R/o PE - Start Lovenox till VQ scan is done # DM2 with hyperglycemia A1c 11.3 - Insulin 70/30 - Adjust dose # Morbidly Obese - Rhit on weight loss and lifestyle changes Plan discussed with: Patient My Orders Orders - KOLE SADLER MD Procedure Category Date Status Time Communication Order ORDERS 10/18/24 Transmitted 15:33 Date of Service: Oct 19, 2024 Billing Provider: KOLE SADLER MD Common Visit Codes: [id number] INP/OBS CARE(HIGH) KOLE SADLER MD Oct 19, 2024 15:08
--- NOTE | 2024-10-19 16:08 | DVHPN2 ---
Progress Note Date Seen: Oct 19, 2024 Medical Necessity Reason Pt with a Central, PICC or Fol: No Subjective Patient reports: Other Review of Systems: RESPIRATORY:Abnormal (sob) Objective vital signs Vital Sign Date Time Temp Pulse Resp B/P (MAP) Pulse Ox O2 Delivery O2 Flow Rate FiO2 10/19/24 12:56 97.8 79 19 100/57 (71) 94 97.8 10/19/24 10:00 Nasal Cannula* 3 32 Total Intake and Output 10/18/24 10/18/24 10/19/24 15:00 23:00 07:00 Intake Total 340 ml 912.5 ml 400 ml Output Total 250 ml Balance 340 ml 912.5 ml 150 ml medications Current Medications Medications Dose Ordered Sig/Avni Route Start Time Stop Time Status Last Admin Dose Admin Albuterol 2.5 mg Q4HPRN PRN NEB 10/17/24 20:45 10/18/24 20:18 2.5 MG Ipratropium [place] 0.5 mg Q4HPRN PRN NEB 10/17/24 20:45 10/18/24 20:18 0.5 MG Aspirin 81 mg DAILY PO 10/18/24 10:00 10/19/24 08:22 81 MG Methylprednisolone Sodium Succinate 40 mg Q8HR IV 10/18/24 06:00 10/19/24 14:58 40 MG Diagnostic Test (Pha) 1 strip IQ4HR 10/18/24 00:00 10/19/24 12:12 1 STRIP Insulin Human Regular IQ4HR SC 10/18/24 00:00 10/19/24 12:08 15 UNITS Dextrose 50 ml UD PRN IV 10/17/24 20:45 Sodium Chloride 10 ml Q8HR IV 10/17/24 22:00 10/19/24 13:56 10 ML Acetaminophen/ Hydrocodone Bitart 1 tab Q4HP PRN PO 10/17/24 20:45 Ondansetron HCl 4 mg Q4HP PRN IV 10/17/24 20:45 Docusate Sodium 100 mg BIDPRN PRN PO 10/17/24 20:45 Acetaminophen 650 mg Q6HP PRN PO 10/17/24 20:45 Carvedilol 3.125 mg Q12HR PO 10/17/24 22:00 10/17/24 21:38 3.125 MG Nitroglycerin 0.4 mg Q5MINP PRN SL 10/17/24 22:30 Morphine Sulfate 2 mg Q30M PRN IV 10/17/24 22:30 Piperacillin Sod/ Tazobactam Sod 100 ml @ 25 mls/hr Q8HR IV 10/18/24 06:00 10/19/24 06:12 25 MLS/HR Vancomycin HCl 0 ml @ 0 mls/hr UD IV 10/17/24 23:00 Hold Insulin Human Isoph/Insulin Regular 25 units BID@08,18 SC 10/18/24 18:00 10/19/24 08:20 25 UNITS Atorvastatin Calcium 40 mg HS PO 10/18/24 22:00 10/18/24 21:39 40 MG Azithromycin 500 mg DAILY PO 10/19/24 10:00 10/23/24 09:59 10/19/24 08:21 500 MG Furosemide 40 mg DAILY IV 10/20/24 10:00 Examination: LUNGS:Abnormal laboratory and microbiology Laboratory Tests 10/19/24 06:05 Test 10/19/24 06:05 Range/Units Serum Glucose 344 H 74-106 mg/dL Microbiology Date/Time Source Procedure Growth Status 10/17/24 23:28 Blood Blood Culture - Preliminary NO GROWTH AFTER 24 HOURS OF INCUBATION. Resulted Problem List/Assessment/Plan Problem List/Assessment/Plan 1) Hemodynamically mediated NARCISA/VMN in the setting of acute illness, lobar pneumonia 2) CKD IIIb 3) community-acquired lobar pneumonia 4) morbid obesity 5) type 2 diabetes REC: -agree with Lasix IV daily given increased oxygenation needs - check urine studies, FeNa, serial chemistry panel -avoidance of NSAIDs, intravenous contrast studies, [place], ARB during time course of NARCISA - outpatient follow up in CKD Clinic upon discharge - discussed plan of care from Nephrology perspective with patient. Kidney ultrasound as ordered Plan discussed with: Patient, Other FRANCHESKA ONTIVEROS MD Oct 19, 2024 16:08
[2024-10-19] MEDS: FUROSEMIDE 40 MG/4 ML VIAL IV ONE (16:37)
--- NOTE | 2024-10-19 17:26 | DVH ---
No ultrasound HISTORY: evans TECHNIQUE: 2 D ultrasound was performed with transaxial and longitudinal images. FINDINGS: Renal cortical echogenicity is increased. Right kidney measures 12.7 cm and left kidney measures 11.1 cm. Midpole cyst right kidney 2.4 cm. No renal stones or hydronephrosis. Urinary bladder unremarkable. IMPRESSION: 1. Increased renal cortical echogenicity consistent with chronic renal parenchymal disease. No eviden ce of obstruction 2. Simple cyst midpole right kidney 2.4 cm
[2024-10-20] VITALS (14 sets, daily range): BP systolic 101–138; BP diastolic 50–70; PULSE 68–113; RESP 17–22; TEMP 97.7–98; O2SAT 91–100
[2024-10-20 09:22] LABS: Basophils # (auto) 0 10 ^3/uL (0-0.2); Basophils % (auto) 0.3 % (0.0-2.0); Eosinophils # (auto) 0 10 ^3/uL (0-0.8); Hemoglobin 14.6 g/dL (13.5-17.5); Lymphocytes # (auto) 0.7 10 ^3/uL (0.4-5.4); Mean Corpuscular Hemoglobin 29.5 pg (28.0-32.0); Mean Corpuscular Hgb Conc. 33.2 g/dL (32.0-36.0); Mean Corpuscular Volume 88.8 fL (80.0-100.0); Monocytes # (auto) 0.5 10 ^3/uL (0-1.3); Monocytes % (auto) 2.6 % (0.0-12.0); Neutrophils % (auto) 93.1 % (37.0-80.0); Platelet Count (auto) 186 10^3/uL (140-450); Red Blood Cells 4.95 10^6/uL (4.5-5.90); Red Cell Distribution Width 15.1 % (11.8-14.3); White Blood Cell 18.2 10^3/uL (4.4-10.8)
[2024-10-20 09:40] LABS: Chloride 101 mmol/L (98-107); Potassium 4.2 mmol/L (3.5-5.1); Sodium 138 mmol/L (136-145)
[2024-10-20 09:41] LABS: Anion Gap 11 (5-15); Calcium 8.9 mg/dL (8.7-10.4); Carbon Dioxide 26 mmol/L (20-31)
[2024-10-20 09:46] LABS: BUN/Creatinine Ratio 21.1 (10.0-20.0)
[2024-10-20 09:47] LABS: Blood Urea Nitrogen 62 mg/dL (9-23); Glucose 324 mg/dL (74-106)
[2024-10-20] MEDS: FUROSEMIDE 40 MG/4 ML VIAL IV SCH (10:51)
--- NOTE | 2024-10-20 14:08 | DVHPN2 ---
Subjective Seen and examined at bedside. Daughter at bedside. SNF placement. Changes from previous H/P or p: No Changes Eyes: No Pain, No Vision change, No Conjunctivae inflammation, No Eyelid inflammation, No Other, No Redness ENT: No Ear pain, No Ear discharge, No Nose pain, No Nose discharge, No Nose congestion, No Mouth pain, No Mouth swelling, No Throat pain, No Throat swelling, No Other Cardiovascular: No Chest Pain, No Palpitations, No Orthopnea, No Paroxysmal Noc. Dyspnea, No Edema, No Lt Headedness, No Other Respiratory: No Cough, No Dry, No Shortness of breath, No SOB with excertion, No Wheezing, No Hemoptysis, No Pleuritic Pain, No Sputum, No Other Gastrointestinal: No Nausea, No Vomiting, No Abdominal Pain, No Diarrhea, No Constipation, No Melena, No Hematochezia, No Other Genitourinary: No Dysuria, No Frequency, No Incontinence, No Hematuria, No Retention, No Other Musculoskeletal: No other, No neck pain, No shoulder pain, No arm pain, No back pain, No hand pain, No leg pain, No foot pain Skin: No Rash, No Lesions, No Jaundice, No Bruising, No Other Objective Vitals Vital Signs Date Time Temp Pulse Resp B/P (MAP) Pulse Ox O2 Delivery O2 Flow Rate FiO2 10/20/24 10:52 71 101/56 10/20/24 10:00 92 Nasal Cannula 3.0 10/20/24 10:00 32 10/20/24 09:00 97.9 18 97.9 Intake/Output Intake and Output 10/20/24 07:00 Intake Total 1725 ml Output Total 1950 ml Balance -225 ml Intake Oral 1325 ml IV Total 400 ml Output Urine Total 1950 ml # Voids 2 # Bowel Movements 4 Exam Gen: in bed no distress Cvs: N S1/S2, RRR Resp: Diminished with few wheezes Abd: Morbidly Obese 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 Medications Current Medications Medications Dose Ordered Sig/Avni Route Start Time Stop Time Status Last Admin Dose Admin Albuterol 2.5 mg Q4HPRN PRN NEB 10/17/24 20:45 10/20/24 05:35 2.5 MG Ipratropium [place] 0.5 mg Q4HPRN PRN NEB 10/17/24 20:45 10/20/24 05:35 0.5 MG Aspirin 81 mg DAILY PO 10/18/24 10:00 10/20/24 10:52 81 MG Methylprednisolone Sodium Succinate 40 mg Q8HR IV 10/18/24 06:00 10/20/24 05:39 40 MG Diagnostic Test (Pha) 1 strip IQ4HR 10/18/24 00:00 10/20/24 12:05 1 STRIP Insulin Human Regular IQ4HR SC 10/18/24 00:00 10/20/24 12:04 12 UNITS Dextrose 50 ml UD PRN IV 10/17/24 20:45 Sodium Chloride 10 ml Q8HR IV 10/17/24 22:00 10/20/24 05:40 10 ML Acetaminophen/ Hydrocodone Bitart 1 tab Q4HP PRN PO 10/17/24 20:45 Ondansetron HCl 4 mg Q4HP PRN IV 10/17/24 20:45 Docusate Sodium 100 mg BIDPRN PRN PO 10/17/24 20:45 Acetaminophen 650 mg Q6HP PRN PO 10/17/24 20:45 Carvedilol 3.125 mg Q12HR PO 10/17/24 22:00 10/20/24 10:52 3.125 MG Nitroglycerin 0.4 mg Q5MINP PRN SL 10/17/24 22:30 Morphine Sulfate 2 mg Q30M PRN IV 10/17/24 22:30 Piperacillin Sod/ Tazobactam Sod 100 ml @ 25 mls/hr Q8HR IV 10/18/24 06:00 10/20/24 05:40 25 MLS/HR Vancomycin HCl 0 ml @ 0 mls/hr UD IV 10/17/24 23:00 Hold Insulin Human Isoph/Insulin Regular 25 units BID@08,18 SC 10/18/24 18:00 10/20/24 08:13 25 UNITS Atorvastatin Calcium 40 mg HS PO 10/18/24 22:00 10/19/24 21:21 40 MG Azithromycin 500 mg DAILY PO 10/19/24 10:00 10/23/24 09:59 10/20/24 10:52 500 MG Furosemide 40 mg DAILY IV 10/20/24 10:00 10/20/24 10:51 40 MG Laboratory Results Laboratory Tests 10/20/24 09:10 Chemistry Test 10/20/24 09:10 Calcium Level 8.9 mg/dL (8.7-10.4) Urinalysis Test 10/18/24 17:24 Urine Color Light-yellow (Yellow) Urine Clarity Clear (Clear) Urine pH 5.0 (5.0-9.0) Urine Specific [place] 1.022 (1.001-1.035) Urine Protein 2+ (Negative) H Urine Ketones 1+ (Negative) H Urine Blood 2+ /uL (Negative) H Urine Nitrite Negative (Negative) Urine Bilirubin Negative (Negative) Urine Urobilinogen Normal mg/dL (Negative) Urine Leukocyte Esterase Negative /uL (Negative) Urine RBC 27 /hpf (0 - 3) Urine Microscopic WBC 1 /HPF (0-3) Urine Squamous Epithelial Cells None seen /hpf (<5) Urine Bacteria None seen /hpf (None Seen) Urine Glucose 4+ mg/dL (Normal) H Microbiology Microbiology Date/Time Source Procedure Growth Status 10/19/24 08:33 Sputum Gram Stain Pending Resulted 10/19/24 08:33 Sputum Respiratory Culture - Preliminary Resulted 10/17/24 23:28 Blood Blood Culture - Preliminary NO GROWTH AFTER 48 HOURS OF INCUBATION. Resulted Assessment/Plan Assessment/Plan # Sepsis - Possible due to Aspiration PNA - Cultures - Abx # Aspiration PNA? - Cultures - Abx # Acute Hypoxic on Chronic Resp Failure. 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
--- NOTE | 2024-10-20 14:22 | DVHPN2 ---
Progress Note Date Seen: Oct 20, 2024 Medical Necessity Reason Pt with a Central, PICC or Fol: No Subjective Patient reports: Other Objective vital signs Vital Sign Date Time Temp Pulse Resp B/P (MAP) Pulse Ox O2 Delivery O2 Flow Rate FiO2 10/20/24 13:00 97.7 68 17 120/65 (83) 94 97.7 10/20/24 10:00 Nasal Cannula 3.0 10/20/24 10:00 32 Total Intake and Output 10/19/24 10/19/24 10/20/24 15:00 23:00 07:00 Intake Total 925 ml 800 ml Output Total 350 ml 900 ml 700 ml Balance -350 ml 25 ml 100 ml medications Current Medications Medications Dose Ordered Sig/Avni Route Start Time Stop Time Status Last Admin Dose Admin Albuterol 2.5 mg Q4HPRN PRN NEB 10/17/24 20:45 10/20/24 05:35 2.5 MG Ipratropium [place] 0.5 mg Q4HPRN PRN NEB 10/17/24 20:45 10/20/24 05:35 0.5 MG Aspirin 81 mg DAILY PO 10/18/24 10:00 10/20/24 10:52 81 MG Methylprednisolone Sodium Succinate 40 mg Q8HR IV 10/18/24 06:00 10/20/24 05:39 40 MG Diagnostic Test (Pha) 1 strip IQ4HR 10/18/24 00:00 10/20/24 12:05 1 STRIP Insulin Human Regular IQ4HR SC 10/18/24 00:00 10/20/24 12:04 12 UNITS Dextrose 50 ml UD PRN IV 10/17/24 20:45 Sodium Chloride 10 ml Q8HR IV 10/17/24 22:00 10/20/24 05:40 10 ML Acetaminophen/ Hydrocodone Bitart 1 tab Q4HP PRN PO 10/17/24 20:45 Ondansetron HCl 4 mg Q4HP PRN IV 10/17/24 20:45 Docusate Sodium 100 mg BIDPRN PRN PO 10/17/24 20:45 Acetaminophen 650 mg Q6HP PRN PO 10/17/24 20:45 Carvedilol 3.125 mg Q12HR PO 10/17/24 22:00 10/20/24 10:52 3.125 MG Nitroglycerin 0.4 mg Q5MINP PRN SL 10/17/24 22:30 Morphine Sulfate 2 mg Q30M PRN IV 10/17/24 22:30 Piperacillin Sod/ Tazobactam Sod 100 ml @ 25 mls/hr Q8HR IV 10/18/24 06:00 10/20/24 05:40 25 MLS/HR Vancomycin HCl 0 ml @ 0 mls/hr UD IV 10/17/24 23:00 Hold Insulin Human Isoph/Insulin Regular 25 units BID@08,18 SC 10/18/24 18:00 10/20/24 08:13 25 UNITS Atorvastatin Calcium 40 mg HS PO 10/18/24 22:00 10/19/24 21:21 40 MG Azithromycin 500 mg DAILY PO 10/19/24 10:00 10/23/24 09:59 10/20/24 10:52 500 MG Furosemide 40 mg DAILY IV 10/20/24 10:00 10/20/24 10:51 40 MG Examination: GENERAL:Normal, HEENT:Normal, NECK:Normal, LUNGS:Abnormal, CVS:Normal, ABDOMEN:Normal, MSK:Normal, MSK:Abnormal, SKIN:Normal, NEURO:Normal, :Normal laboratory and microbiology Laboratory Tests 10/20/24 09:10 Test 10/20/24 09:10 Range/Units Serum Glucose 324 H 74-106 mg/dL Microbiology Date/Time Source Procedure Growth Status 10/19/24 08:33 Sputum Gram Stain Pending Resulted 10/19/24 08:33 Sputum Respiratory Culture - Preliminary Resulted 10/17/24 23:28 Blood Blood Culture - Preliminary NO GROWTH AFTER 48 HOURS OF INCUBATION. Resulted Problem List/Assessment/Plan Problem List/Assessment/Plan 1) Hemodynamically mediated NARCISA/VMN in the setting of acute illness, lobar pneumonia 2) CKD IIIb 3) community-acquired lobar pneumonia 4) morbid obesity 5) type 2 diabetes REC: -agree with Lasix IV daily -no hydro on US urine w/u pending Plan discussed with: Patient, Other My Orders My Orders Orders - FRANCHESKA ONTIVEROS MD Procedure Category Date Status Time Kidney US 10/19/24 Resulted 16:06 Dietary Evaluation Review Comments: CCHO-60, Cardiac, Renal Specific protein 60g diet. Expected Outcomes/Goals: Wt Loss, Controlled T2DM,less uremic syndrome and less cardiac distress. FRANCHESKA ONTIVEROS MD Oct 20, 2024 14:22
[2024-10-21] VITALS (10 sets, daily range): BP systolic 108–132; BP diastolic 58–83; PULSE 56–86; RESP 16–17; TEMP 97.3–98.8; O2SAT 93–99
[2024-10-21] MEDS: VANCOMYCIN 1.75GM/350ML 350 ML IV ONE (13:15)
--- NOTE | 2024-10-21 13:49 | DVHDS2 ---
Discharge Summary Date of Admission Oct 17, 2024 at 22:21 Date of Discharge: Oct 21, 2024 Admitting Diagnosis Aspiration PNA Labs/Diagnostic Data: Laboratory Results Test 10/21/24 11:05 10/21/24 07:46 10/20/24 09:10 10/19/24 09:51 POC Glucose 327 mg/dl (70-106) Creatinine 2.60 mg/dL (0.700-1.30) Glomerular Filtration Rate Calc 26 mL/min (>90) Random Vancomycin Level 13.2 ug/mL (5-10) White Blood Count 18.2 10^3/uL (4.4-10.8) Red Blood Count 4.95 10^6/uL (4.5-5.90) Hemoglobin 14.6 g/dL (13.5-17.5) Hematocrit 44.0 % (41.0-53.0) Mean Corpuscular Volume 88.8 fL (80.0-100.0) Mean Corpuscular Hemoglobin 29.5 pg (28.0-32.0) Mean Corpuscular Hemoglobin Concent 33.2 g/dL (32.0-36.0) Red Cell Distribution Width 15.1 % (11.8-14.3) Platelet Count 186 10^3/uL (140-450) Mean Platelet Volume 8.6 fL (6.9-10.8) Neutrophils (%) (Auto) 93.1 % (37.0-80.0) Lymphocytes (%) (Auto) 4.0 % (10.0-50.0) Monocytes (%) (Auto) 2.6 % (0.0-12.0) Eosinophils (%) (Auto) 0.0 % (0.0-7.0) Basophils (%) (Auto) 0.3 % (0.0-2.0) Neutrophils # (Auto) 17.0 10 ^3/uL (1.6-8.6) Lymphocytes # (Auto) 0.7 10 ^3/uL (0.4-5.4) Monocytes # (Auto) 0.5 10 ^3/uL (0-1.3) Eosinophils # (Auto) 0 10 ^3/uL (0-0.8) Basophils # (Auto) 0 10 ^3/uL (0-0.2) Nucleated Red Blood Cells 0.0 % Sodium Level 138 mmol/L (136-145) Potassium Level 4.2 mmol/L (3.5-5.1) Chloride Level 101 mmol/L (98-107) Carbon Dioxide Level 26 mmol/L (20-31) Anion Gap 11 (5-15) Blood Urea Nitrogen 62 mg/dL (9-23) BUN/Creatinine Ratio 21.1 (10.0-20.0) Serum Glucose 324 mg/dL (74-106) Calcium Level 8.9 mg/dL (8.7-10.4) Lactic Acid Level 2.2 mmol/L (0.4-2.0) Test 10/19/24 06:05 10/18/24 17:24 10/18/24 06:10 10/17/24 23:51 Differential Total Cells Counted 100.0 (100) Neutrophils % (Manual) 74 (37.0-80.0) Band Neutrophils % (Manual) 21 Lymphocytes % (Manual) 2 (10.0-50.0) Monocytes % (Manual) 3 (0-12) Eosinophils % (Manual) 0 (0-7) Basophils % (Manual) 0 (0.0-2.0) Metamyelocytes % (manual) 0 Myelocytes % (Manual) 0 Promyelocytes % (Manual) 0 Blast Cells % (Manual) 0 Reactive Lymphocytes 0 Platelet Estimate Adequate Urine Color Light-yellow (Yellow) Urine Clarity Clear (Clear) Urine pH 5.0 (5.0-9.0) Urine Specific [place] 1.022 (1.001-1.035) Urine Protein 2+ (Negative) Urine Ketones 1+ (Negative) Urine Blood 2+ /uL (Negative) Urine Nitrite Negative (Negative) Urine Bilirubin Negative (Negative) Urine Urobilinogen Normal mg/dL (Negative) Urine Leukocyte Esterase Negative /uL (Negative) Urine RBC 27 /hpf (0 - 3) Urine Microscopic WBC 1 /HPF (0-3) Urine Squamous Epithelial Cells None seen /hpf (<5) Urine Bacteria None seen /hpf (None Seen) Urine Glucose 4+ mg/dL (Normal) Urine Opiates Screen Neg (NEGATIVE) Urine Fentanyl Screen Neg (NEGATIVE) Urine Barbiturates Screen Neg (NEGATIVE) Urine Phencyclidine Screen Neg (NEGATIVE) Urine Amphetamines Screen Neg (NEGATIVE) Urine Benzodiazepines Screen Neg (NEGATIVE) Urine Cocaine Screen Neg (NEGATIVE) Urine Cannabinoids Screen Neg (NEGATIVE) Hemoglobin A1c 11.4 % A1C (<5.7) Total Bilirubin 0.6 mg/dL (0.2-1.0) Aspartate Amino Transferase (AST) 10 U/L (13-40) Alanine Aminotransferase (ALT) 25 U/L (7-40) Alkaline Phosphatase 80 U/L (46-116) Total Protein 6.3 g/dL (5.7-8.2) Albumin 4.0 g/dL (3.2-4.8) Influenza Type A Antigen Negative (Negative) Influenza Type B Antigen Negative (Negative) SARS-CoV-2 Antigen (Rapid) Negative (NEGATIVE) Test 10/17/24 22:45 10/17/24 19:33 10/17/24 19:22 Troponin I High Sensitivity 4 ng/L (</=54) D-Dimer, Quantitative 4.09 mg/L FEU (0.0-0.49) B-Type Natriuretic Peptide 304.68 pg/mL (0-100) Blood Gas Specimen Type Arterial Blood Gas Sample Site Right brachial Blood Gas Patient Temperature 37.0 Arterial Blood Date Drawn [id number] Arterial Blood pH 7.385 (7.350-7.450) Arterial Blood Partial Pressure CO2 36.9 mmHg (35.0-48.0) Arterial Blood Partial Pressure O2 73.7 mmHg (83.0-108.0) Arterial Blood HCO3 21.6 mmol/L (21.0-28.0) Arterial Blood Oxygen Saturation 94.8 % (94.0-98.0) Arterial Blood Base Excess -2.8 mmol/L (-2.0-3.0) Arterial Blood Oxyhemoglobin 93.1 % (94.0-98.0) Arterial Blood Carboxyhemoglobin 1.3 % (0.5-1.5) Arterial Blood Methemoglobin 0.5 % (0.0-1.5) [place] Test N/a Blood Gas Total Hemoglobin 17.20 g/dL (13.5-17.5) Blood Gas Liter Flow 3.00 Blood Gas Modality Nasal cannula FiO2 % 32.0 Other Laboratory Tests 10/21/24 07:46 10/20/24 09:10 Brief Hx & Hospital Course: Patient is a 69-year-old male with past medical history of CVA, COPD, hyperlipidemia, kidney stones, and hypertension presented to [facility] ED with complaint of shortness of breaths. Patient reports symptoms progressively get worse with cough, increased work of breathing, getting worse that prompted this visit. Patient was seen and evaluated in the ED, laboratory data shows WBC 39.0, platelets 160, sodium 136, potassium 7.0, BUN 38, creatinine 2.59, GFR 26, glucose 308, lactic acid 4.0, troponin five, BNP 304.68, D-dimer 4.09. Chest x-ray revealing new patchy in the left lower lobes consistent with pneumonia. Patient is back to 3-4L nasal cannula oxygen. Will be discharged to SNF. Operations or Procedures Procedure: CT CHEST WITHOUT CONTRAST Reason for study/Clinical History: PNA/COPD Comparison Study: None available at time of dictation. Exam Date: 10/18/2024 03:08 PM TECHNIQUE: Multidetector CT of the chest was performed from the lung apices to the upper abdomen without the use of intravenous contract. Axial, coronal and sagittal multiplanar reformats were performed. Radiation Dose Information: CT Dose: CTDI volume is 30.18 mGy. Dose-length product is 1210.67 mGy*cm The dose indicators for CT are the volume Computed Tomography (CT) Dose Index (CTDIvol) and the Dose Length Product (DLP), and are measured in units of mGy and mGy-cm, respectively. These indicators are not patient dose, but values generated from the CT scanner acquisition factors. The report includes radiation exposure data for exposures received during this examination. FINDINGS: Lower neck: Normal thyroid. Lungs: Severe COPD and emphysematous changes with multiple bullae bilaterally. There is an infiltrate in the left lower lobe. Heart/Vascular Structures: Normal heart size. No pericardial effusion. Lymph Nodes: No adenopathy Pleura: No pleural effusion or significant pneumothorax. Musculoskeletal: No acute osseous abnormality. Soft tissues: Normal. Upper abdomen: Limited portions of the upper abdomen are unremarkable. IMPRESSION: 1. Airspace disease left lower lobe with consolidation. 2. Emphysematous changes with multiple bilateral bullae. APPROVED REPORT EXAM: LIMITED Two-dimensional and M-mode echocardiogram with Doppler and color Doppler. Blood Pressure: 105/62 mmHg INDICATION CHF exacerbation, unspecified RISK FACTORS Height: 66, Weight: 249 DIMENSIONS LVDd 4.1 (3.8-5.7cm) LA (2D) (1.9-4.0cm) Aortic Root (2.0-3.7cm) LVDs 3.1 (2.5-4.0cm) LA (MM) (1.9-4.0cm) Aortic Cusp Exc (1.5- 2.0cm) EF (%) 50.0 (55-70%) Rt. Atrium (1.9-4.0cm) Asc. Aorta cm Mitral Valve Mitral Mitral Stenosis E wave 0.77m/s MV Mean GR. mmHg A wave 1.12m/s MV Peak GR. mmHg E/A ratio 0.7 2D MVA cm2 DECEL Time 320ms PRESS 1/2 Time 56ms IVRT ms Dop MVA 3.92cm2 Aortic Valve Aortic Valve Aortic Stenosis V1 1.47m/s AO Mean GR. 5mmHg V2 1.51m/s AO Peak GR. 9mmHg Other Information Technically limited study due to body habitus, patient position and patient moving. Conclusion MODERATELY DILATED AND HYPOKINETIC RV MILD LVH AND MILD LV DIASTOLIC DYSFUNCTION LV EF IS 65% AORTIC SCLEROSIS NO EFFUSION NORMAL MV,TV AND PV Condition at Discharge: Poor Final Diagnosis/Problems List # Sepsis - Possible due to Aspiration PNA - Cultures - Abx # Aspiration PNA - Cultures - Abx # Acute Hypoxic on Chronic Resp Failure. 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 Patient was counseled about treatment plan, medications, possible side effects, patientverbalized understanding. All questions were answered to the best of my ability. This discharge took greater then 30 minutes in planning, reviewing documentation, counseling the patient, and discussing with other team members." ASSESSMENT ASSESSMENT Assessment Date of Service: Oct 21, 2024 Billing Provider: KOLE SADLER MD Common Visit Codes: 82259-DQL/OBS DISCH DAY >30min KOLE SADLER MD Oct 21, 2024 13:49
[2024-10-21 14:04] LABS: Hemoglobin 14.9 g/dL (13.5-17.5); Mean Corpuscular Hemoglobin 29.2 pg (28.0-32.0); Mean Corpuscular Hgb Conc. 33.1 g/dL (32.0-36.0); Mean Corpuscular Volume 88.3 fL (80.0-100.0); Platelet Count (auto) 197 10^3/uL (140-450); Red Cell Distribution Width 15.1 % (11.8-14.3); White Blood Cell 11.7 10^3/uL (4.4-10.8)
[2024-10-21 14:05] LABS: Chloride 101 mmol/L (98-107); Potassium 4.3 mmol/L (3.5-5.1); Sodium 137 mmol/L (136-145)
[2024-10-21 14:06] LABS: Anion Gap 9 (5-15); Carbon Dioxide 27 mmol/L (20-31)
[2024-10-21 14:07] LABS: Calcium 8.8 mg/dL (8.7-10.4)
[2024-10-21 14:08] LABS: Band Neutrophils % (manual) 0; Basophils % (manual) 0 (0.0-2.0); Blast Cells 0; Eosinophils % (manual) 0 (0-7); Metamyelocytes % 0; Myelocytes % 0; Promyelocytes % 0; Reactive Lymphocytes 0
[2024-10-21 14:13] LABS: Blood Urea Nitrogen 62 mg/dL (9-23); Glucose 386 mg/dL (74-106)
[2024-10-21 14:37] LABS: Lymphocytes % (manual) 11 (10.0-50.0); Monocytes % (manual) 2 (0-12)
[2024-10-21 14:38] LABS: Platelet Estimate Adequate; RBC Morphology Normal
--- NOTE | 2024-10-21 15:26 | DVHPN2 ---
Progress Note Date Seen: Oct 21, 2024 Medical Necessity Reason Pt with a Central, PICC or Fol: No Subjective Patient reports: No new complaints, Feels better Review of Systems: Deferred Objective vital signs Vital Sign Date Time Temp Pulse Resp B/P (MAP) Pulse Ox O2 Delivery O2 Flow Rate FiO2 10/21/24 13:00 97.6 86 17 127/60 (82) 94 97.6 10/21/24 10:00 Nasal Cannula 3.0 10/21/24 10:00 32 Total Intake and Output 10/20/24 10/20/24 10/21/24 15:00 23:00 07:00 Intake Total 100 ml 100 ml 1200 ml Output Total 1950 ml 800 ml Balance 100 ml -1850 ml 400 ml medications Current Medications Medications Dose Ordered Sig/Avni Route Start Time Stop Time Status Last Admin Dose Admin Albuterol 2.5 mg Q4HPRN PRN NEB 10/17/24 20:45 10/20/24 19:46 2.5 MG Ipratropium [place] 0.5 mg Q4HPRN PRN NEB 10/17/24 20:45 10/20/24 19:47 0.5 MG Aspirin 81 mg DAILY PO 10/18/24 10:00 10/21/24 09:27 81 MG Methylprednisolone Sodium Succinate 40 mg Q8HR IV 10/18/24 06:00 10/21/24 13:14 40 MG Diagnostic Test (Pha) 1 strip IQ4HR 10/18/24 00:00 10/21/24 11:11 1 STRIP Insulin Human Regular IQ4HR SC 10/18/24 00:00 10/21/24 11:11 12 UNITS Dextrose 50 ml UD PRN IV 10/17/24 20:45 Sodium Chloride 10 ml Q8HR IV 10/17/24 22:00 10/21/24 12:09 10 ML Acetaminophen/ Hydrocodone Bitart 1 tab Q4HP PRN PO 10/17/24 20:45 Ondansetron HCl 4 mg Q4HP PRN IV 10/17/24 20:45 Docusate Sodium 100 mg BIDPRN PRN PO 10/17/24 20:45 Acetaminophen 650 mg Q6HP PRN PO 10/17/24 20:45 Carvedilol 3.125 mg Q12HR PO 10/17/24 22:00 10/20/24 21:12 3.125 MG Nitroglycerin 0.4 mg Q5MINP PRN SL 10/17/24 22:30 Morphine Sulfate 2 mg Q30M PRN IV 10/17/24 22:30 Piperacillin Sod/ Tazobactam Sod 100 ml @ 25 mls/hr Q8HR IV 10/18/24 06:00 10/21/24 13:15 25 MLS/HR Vancomycin HCl 0 ml @ 0 mls/hr UD IV 10/17/24 23:00 Hold Insulin Human Isoph/Insulin Regular 25 units BID@08,18 SC 10/18/24 18:00 10/20/24 18:20 25 UNITS Atorvastatin Calcium 40 mg HS PO 10/18/24 22:00 10/20/24 21:13 40 MG Azithromycin 500 mg DAILY PO 10/19/24 10:00 10/23/24 09:59 10/21/24 09:27 500 MG Furosemide 40 mg DAILY IV 10/20/24 10:00 10/21/24 09:27 40 MG laboratory and microbiology Laboratory Tests 10/21/24 13:44 Test 10/21/24 13:44 Range/Units Serum Glucose 386 H 74-106 mg/dL Microbiology Date/Time Source Procedure Growth Status 10/19/24 08:33 Sputum Gram Stain - Final Resulted 10/19/24 08:33 Sputum Respiratory Culture - Preliminary Resulted 10/17/24 23:28 Blood Blood Culture - Preliminary NO GROWTH AFTER 72 HOURS OF INCUBATION. Resulted Problem List/Assessment/Plan Problem List/Assessment/Plan 1) Hemodynamically mediated NARCISA/VMN in the setting of acute illness, lobar pneumonia 2) CKD IIIb 3) community-acquired lobar pneumonia 4) morbid obesity 5) type 2 diabetes REC: -agree with Lasix IV daily -no hydro on US stable renal function Plan discussed with: Patient Dietary Evaluation Review Comments: CCHO-60, Cardiac, Renal Specific protein 60g diet. Expected Outcomes/Goals: Wt Loss, Controlled T2DM,less uremic syndrome and less cardiac distress. FRANCHESKA ONTIVEROS MD Oct 21, 2024 15:26
== END 2024-10-21 19:44 | DRG 871 ==
LOC: EDBD 18:31 → ER 18:43 → OVERFLOW 22:21 → TELE-CENTR 10-18 02:14
PROVIDERS: ADMIT Internal Medicine; ATTEND Internal Medicine
DX: A41.9 Sepsis, unspecified organism (principal); J18.9 Pneumonia, unspecified organism; J69.0 Pneumonitis due to inhalation of food and vomit; J96.21 Acute and chronic respiratory failure with hypoxia; N17.0 Acute kidney failure with tubular necrosis; J44.1 Chronic obstructive pulmonary disease with (acute) exacerbation; I13.0 Hypertensive heart and chronic kidney disease with heart failure and stage 1 through stage 4 chronic kidney disease, or unspecified chronic kidney disease; J44.0 Chronic obstructive pulmonary disease with (acute) lower respiratory infection; Z68.41 Body mass index [BMI] 40.0-44.9, adult; Z20.822 Contact with and (suspected) exposure to COVID-19; E87.5 Hyperkalemia; N18.32 Chronic kidney disease, stage 3b; E11.22 Type 2 diabetes mellitus with diabetic chronic kidney disease; E66.01 Morbid (severe) obesity due to excess calories; E11.65 Type 2 diabetes mellitus with hyperglycemia; I50.9 Heart failure, unspecified; E78.5 Hyperlipidemia, unspecified; Z87.891 Personal history of nicotine dependence; Z86.73 Personal history of transient ischemic attack (TIA), and cerebral infarction without residual deficits; Z95.1 Presence of aortocoronary bypass graft; Z79.82 Long term (current) use of aspirin; Z79.899 Other long term (current) drug therapy; Z83.3 Family history of diabetes mellitus; Z87.442 Personal history of urinary calculi
CPT/HCPCS: 36415; 36600; 71045; 71250; 76775; 78582; 80048; 80053; 80202; 80307; 81001; 82565; 82805; 82962; 83036; 83605; 83880; 84484; 85007; 85025; 85027; 85379; 87040; 87070; 87205; 87426; 87804; 93005; 93306; 93970; 94640; 96365; 96375; 99291; G0378; J1815; J2543